=== PATIENT | female | born 1965 | race African-American/Black ===

== ENCOUNTER 2016-12-11 11:51 | Emergency (ER) | payer OTHER ==
[~2016-12-11] VITALS: Ht 152.4 cm; Wt 109.0 kg
[~2016-12-11 11:51] MED LIST: AMIT25TA9 PO; ATOR80TA76 PO; CARV25TA47 PO; CHOL20004 PO; DIPH25CA83 PO; DOCU-138 PO; ERGO2000 PO; FLEXERIL PO; FLONASE NAS; FURO40TA5 PO; GLUCOPHAGE; HUMALOG SUBCUT; HYDR-519 PO; INSU3INS6 SUBCUT; ISOS30TA6 PO; LEVEMIR; LORA10TA7 PO; METO-293 PO; NEXIUM; NIFE60TA64 PO; ONDA4TAB51 PO; PANT40TA4 PO; PLAVIX PO; PREG75CA PO; SERT-112 PO; TRIA15OI8 TP
[2016-12-11 16:09] LABS: BASOPHILS % 0.6 % (0.0-2.0); EOSINOPHILS % 3.7 % (0.0-5.0); HEMATOCRIT. 32.2 % (36.0-48.0); HEMOGLOBIN. 10.1 g/dL (12.0-16.0); LYMPHOCYTES % 28.9 % (20.0-50.0); MEAN CORPUSCULAR HEMOGLOBIN 27.3 pg (28.0-32.0); MEAN CORPUSCULAR HGB CONC 31.3 g/dL (31.0-37.0); MEAN CORPUSCULAR VOLUME 87.1 fL (81.0-99.0); MEAN PLATELET VOLUME 8.7 fl (7.4-10.4); MONOCYTES % 6.4 % (2.0-8.0); NEUTROPHILS % 60.4 % (40.0-76.0); PLATELET 219 x1000/uL (130-400); RED BLOOD CELL COUNT 3.69 mill/uL (4.2-5.4); RED CELL DISTRIBUTION WIDTH 17.9 % (11.6-14.6); WHITE BLOOD COUNT 7.3 x1000/uL (4.5-11.0)
[2016-12-11 16:11] LABS: INR 1.1; PROTHROMBIN TIME 11.6 sec
[2016-12-11 16:12] LABS: CALCIUM 8.9 mg/dL (8.5-10.1)
[2016-12-11 17:43] VITALS: BP 190/89
== END 2016-12-11 18:25 | disposition home or self-care (01) ==
LOC: ER 14:24
DX: N18.9 Chronic kidney disease, unspecified (principal); I12.9 Hypertensive chronic kidney disease with stage 1 through stage 4 chronic kidney disease, or unspecified chronic kidney disease; F41.9 Anxiety disorder, unspecified; J45.909 Unspecified asthma, uncomplicated; I50.9 Heart failure, unspecified; F32.9 Major depressive disorder, single episode, unspecified; E11.9 Type 2 diabetes mellitus without complications; Z99.2 Dependence on renal dialysis; Z79.4 Long term (current) use of insulin
CPT/HCPCS: 36415; 80048; 85025; 85610; 99284

== ENCOUNTER 2016-12-29 18:03 | Inpatient (IN) | payer OTHER ==
[~2016-12-29] VITALS: Ht 165.1 cm; Wt 134.7 kg
[~2016-12-29 18:03] MED LIST changes: +HUMALOG; -HUMALOG SUBCUT
[2016-12-29] MEDS ORDERED: ASPIRIN 81MG TABLET PO ONE (21:45)
[2016-12-29] MEDS ORDERED: NITROGLYCERIN OINT 1GM/INCH UDPKT TD ONE (21:45)
[2016-12-29 22:43] LABS: BASOPHILS % 0.4 % (0.0-2.0); EOSINOPHILS % 1.6 % (0.0-5.0); HEMATOCRIT. 33.8 % (36.0-48.0); HEMOGLOBIN. 10.7 g/dL (12.0-16.0); LYMPHOCYTES % 24.1 % (20.0-50.0); MEAN CORPUSCULAR HEMOGLOBIN 27.5 pg (28.0-32.0); MEAN CORPUSCULAR VOLUME 86.5 fL (81.0-99.0); MEAN PLATELET VOLUME 9.3 fl (7.4-10.4); MONOCYTES % 4.8 % (2.0-8.0); NEUTROPHILS % 69.1 % (40.0-76.0); PLATELET 196 x1000/uL (130-400); RED CELL DISTRIBUTION WIDTH 16.6 % (11.6-14.6)
[2016-12-29 22:51] LABS: PARTIAL THROMBOPLASTIN TIME 35.2 sec (24.0-34.0); PROTHROMBIN TIME 10.7 sec
[2016-12-29 22:54] LABS: CARBON DIOXIDE 18 mEq/L (21-32); CHLORIDE 114 mEq/L (98-107); ETHANOL BLOOD < 10 mg/dL
[2016-12-29 23:02] LABS: TROPONIN I < 0.02 ng/mL (0.00-0.04)
[2016-12-29] MEDS ORDERED: SODIUM POLYSTYRENE SULFONATE 15 G/60 ML BOT PO ONE (23:30)
[2016-12-29] MEDS ORDERED: INSULIN REGULAR (HUMULIN R) 300UNITS/3ML IV ONE (23:30)
[2016-12-29] MEDS ORDERED: CALCIUM CHLORIDE 1GM/10ML SYR IV ONE (23:30)
[2016-12-29] MEDS ORDERED: DEXTROSE 50% WATER 50ML SYRINGE IV ONE (23:30)
[2016-12-29] MEDS ORDERED: SODIUM BICARBONATE 8.4% 1 MEQ/ML 50ML SYR IV ONE (23:30)
[2016-12-30] MEDS ORDERED: HYDROCODONE/ACETAMINOPHEN 10/325MG TABLET PO ONE (01:15)
[2016-12-30 04:05] VITALS: BP 163/80
[2016-12-30 08:00] VITALS: BP 137/69
[2016-12-30] MEDS ORDERED: ENOXAPARIN 30MG/0.3ML SYR SUBCUT SCH (09:00)
[2016-12-30] MEDS ORDERED: SODIUM POLYSTYRENE SULFONATE 15 G/60 ML BOT PO PRN (09:00)
[2016-12-30] MEDS: HYDROCODONE/ACETAMINOPHEN 5/325MG TABLET PO PRN (09:35)
[2016-12-30] MEDS ORDERED: DIPHENHYDRAMINE 50MG/ML VIAL IV PRN (10:30)
[2016-12-30] MEDS ORDERED: NA PHOS,M-B/NA PHOS,DI-BA ENEMA 118ML PR PRN (10:30)
[2016-12-30] MEDS ORDERED: IPRATROPIUM/ALBUTEROL 0.5-3(2.5)MG/3ML NEB INH PRN (10:30)
[2016-12-30] MEDS ORDERED: MAGNESIUM 2 G PREMIX 50 ML IV NR (10:30)
[2016-12-30] MEDS ORDERED: ENOXAPARIN 40MG/0.4ML SYR SUBCUT SCH (10:30)
[2016-12-30] MEDS: SODIUM CHLORIDE 0.45% 1,000 ML IV SCH (11:58)
[2016-12-30 12:00] VITALS: BP 160/72
[2016-12-30] MEDS: METRONIDAZOLE 500 MG PREMIX 100 ML IV SCH (16:24)
[2016-12-30 16:29] LABS: CARBON DIOXIDE 20 mEq/L (21-32); CHLORIDE 114 mEq/L (98-107); CREATINE KINASE 47 IU/L (26-192); CREATINE KINASE MB FRACTION 1.4 ng/mL (0.5-3.6); TROPONIN I < 0.02 ng/mL (0.00-0.04)
[2016-12-30 16:57] VITALS: BP 152/78
[2016-12-30] MEDS ORDERED: SODIUM POLYSTYRENE SULFONATE 15 G/60 ML BOT PO NR (18:30)
[2016-12-30 20:00] VITALS: BP 194/96
[2016-12-30] MEDS: CLONIDINE 0.1MG TABLET PO PRN (21:19)
[2016-12-30] MEDS: HYDROCODONE/ACETAMINOPHEN 10/325MG TABLET PO PRN (21:20)
[2016-12-31] VITALS: BP 164/88
[2016-12-31] MEDS: METRONIDAZOLE 500 MG PREMIX 100 ML IV SCH ×3 (00:32→16:48)
[2016-12-31] MEDS: ACETAMINOPHEN 325MG TABLET PO PRN (00:47)
[2016-12-31 00:56] LABS: CREATINE KINASE 58 IU/L (26-192)
[2016-12-31 01:01] LABS: CREATINE KINASE MB FRACTION 1.3 ng/mL (0.5-3.6); TROPONIN I < 0.02 ng/mL (0.00-0.04)
[2016-12-31 04:00] VITALS: BP 151/107
[2016-12-31] MEDS: CLONIDINE 0.1MG TABLET PO PRN ×2 (05:16→12:58)
[2016-12-31] MEDS: SODIUM CHLORIDE 0.45% 1,000 ML IV SCH ×2 (05:16→13:01)
[2016-12-31] MEDS: HYDROCODONE/ACETAMINOPHEN 10/325MG TABLET PO PRN ×3 (05:18→19:55)
[2016-12-31 05:39] LABS: BASOPHILS % 0.5 % (0.0-2.0); EOSINOPHILS % 2.3 % (0.0-5.0); HEMATOCRIT. 28.4 % (36.0-48.0); HEMOGLOBIN. 9.3 g/dL (12.0-16.0); LYMPHOCYTES % 29.2 % (20.0-50.0); MEAN CORPUSCULAR HEMOGLOBIN 27.8 pg (28.0-32.0); MEAN PLATELET VOLUME 9.6 fl (7.4-10.4); MONOCYTES % 6.2 % (2.0-8.0); NEUTROPHILS % 61.8 % (40.0-76.0); PLATELET 168 x1000/uL (130-400); RED BLOOD CELL COUNT 3.35 mill/uL (4.2-5.4); RED CELL DISTRIBUTION WIDTH 16.7 % (11.6-14.6)
[2016-12-31 06:34] LABS: CARBON DIOXIDE 17 mEq/L (21-32); CHLORIDE 112 mEq/L (98-107); CREATINE KINASE 51 IU/L (26-192); CREATINE KINASE MB FRACTION 1.5 ng/mL (0.5-3.6); LDL CHOLESTEROL 58 mg/dL (5-100); TROPONIN I 0.02 ng/mL (0.00-0.04)
[2016-12-31 06:40] LABS: HDL CHOLESTEROL 38 mg/dL (40-59); T4 FREE 0.72 ng/dL (0.76-1.46)
[2016-12-31 08:00] VITALS: BP 167/96
[2016-12-31] MEDS: ASPIRIN 81MG EC TABLET PO SCH (08:59)
[2016-12-31] MEDS: ENOXAPARIN 40MG/0.4ML SYR SUBCUT SCH (08:59)
[2016-12-31] MEDS: FUROSEMIDE 40MG/4ML VIAL IVP SCH (10:56)
[2016-12-31 12:00] VITALS: BP 190/101
[2016-12-31 16:00] VITALS: BP 165/89
[2016-12-31] MEDS: MAGNESIUM/ALUMINUM HYDROXIDE/SIMETHICONE 30ML UDC PO PRN (17:12)
[2016-12-31 20:00] VITALS: BP 179/73
[2016-12-31] MEDS ORDERED: BENAZEPRIL 20MG TABLET PO NR (23:55)
[2017-01-01] VITALS (7 sets, daily range): BP systolic 112–192; BP diastolic 49–98
[2017-01-01] MEDS: ACETAMINOPHEN 325MG TABLET PO PRN (00:08)
[2017-01-01] MEDS: METRONIDAZOLE 500 MG PREMIX 100 ML IV SCH ×2 (00:08→09:00)
[2017-01-01] MEDS: ONDANSETRON HCL 4MG/2ML VIAL IV PRN ×3 (00:19→20:42)
[2017-01-01] MEDS: SODIUM CHLORIDE 0.45% 1,000 ML IV SCH ×2 (01:38→15:49)
[2017-01-01 06:07] LABS: PHOSPHORUS 4.9 mg/dL (2.5-4.9)
[2017-01-01] MEDS: HYDROCODONE/ACETAMINOPHEN 10/325MG TABLET PO PRN ×3 (08:59→20:38)
[2017-01-01] MEDS: ASPIRIN 81MG EC TABLET PO SCH (09:51)
[2017-01-01] MEDS: CITRIC ACID/SODIUM CITRATE SOLN 15ML UDC PO SCH (09:51)
[2017-01-01] MEDS: FUROSEMIDE 40MG/4ML VIAL IVP SCH (09:51)
[2017-01-01] MEDS: BENAZEPRIL 20MG TABLET PO SCH ×2 (09:52→20:38)
[2017-01-01] MEDS: ENOXAPARIN 40MG/0.4ML SYR SUBCUT SCH (09:53)
[2017-01-01] MEDS: CLONIDINE 0.1MG TABLET PO PRN ×2 (15:50→21:55)
[2017-01-01] MEDS: METRONIDAZOLE 500MG TABLET PO SCH ×2 (16:13→21:55)
[2017-01-01] MEDS: MAGNESIUM/ALUMINUM HYDROXIDE/SIMETHICONE 30ML UDC PO PRN (20:37)
[2017-01-02] VITALS (9 sets, daily range): BP systolic 145–213; BP diastolic 72–123
[2017-01-02] MEDS: HYDROCODONE/ACETAMINOPHEN 5/325MG TABLET PO PRN (01:21)
[2017-01-02] MEDS: METOPROLOL TARTRATE 25MG TABLET PO SCH ×2 (01:41→08:36)
[2017-01-02] MEDS: SODIUM CHLORIDE 0.45% 1,000 ML IV SCH (04:01)
[2017-01-02] MEDS: CLONIDINE 0.1MG TABLET PO PRN (04:01)
[2017-01-02] MEDS ORDERED: CLONIDINE 0.3MG TABLET PO PRN (06:09)
[2017-01-02] MEDS: METRONIDAZOLE 500MG TABLET PO SCH ×2 (06:15→13:56)
[2017-01-02 06:26] LABS: BASOPHILS % 0.4 % (0.0-2.0); EOSINOPHILS % 0.9 % (0.0-5.0); HEMATOCRIT. 28.1 % (36.0-48.0); HEMOGLOBIN. 9.3 g/dL (12.0-16.0); LYMPHOCYTES % 20.9 % (20.0-50.0); MEAN CORPUSCULAR HEMOGLOBIN 27.7 pg (28.0-32.0); MEAN CORPUSCULAR VOLUME 83.7 fL (81.0-99.0); MEAN PLATELET VOLUME 9.3 fl (7.4-10.4); MONOCYTES % 5.4 % (2.0-8.0); NEUTROPHILS % 72.4 % (40.0-76.0); PLATELET 189 x1000/uL (130-400); RED BLOOD CELL COUNT 3.36 mill/uL (4.2-5.4)
[2017-01-02] MEDS: FUROSEMIDE 40MG/4ML VIAL IVP SCH (08:35)
[2017-01-02] MEDS: ENOXAPARIN 40MG/0.4ML SYR SUBCUT SCH (08:35)
[2017-01-02] MEDS: CITRIC ACID/SODIUM CITRATE SOLN 15ML UDC PO SCH (08:35)
[2017-01-02] MEDS: ASPIRIN 81MG EC TABLET PO SCH (08:36)
[2017-01-02] MEDS: BENAZEPRIL 20MG TABLET PO SCH (08:49)
[2017-01-02] MEDS ORDERED: AMLODIPINE 5MG TABLET PO SCH (09:00)
[2017-01-02] MEDS ORDERED: METOPROLOL TARTRATE 25MG TABLET PO SCH (09:00)
[2017-01-02] MEDS: ONDANSETRON HCL 4MG/2ML VIAL IV PRN (10:10)
[2017-01-02] MEDS: HYDROCODONE/ACETAMINOPHEN 10/325MG TABLET PO PRN (10:12)
== END 2017-01-02 14:20 | disposition home or self-care (01) | DRG 254 ==
LOC: ER 18:04 → 7WST 12-30 00:42
PROVIDERS: ADMIT Internal Medicine; ATTEND Internal Medicine
PROC: 05PYX3Z Removal of Infusion Device from Upper Vein, External Approach (ICD-10-PCS; principal; 2016-12-31)
DX: K59.1 Functional diarrhea (principal); I13.2 Hypertensive heart and chronic kidney disease with heart failure and with stage 5 chronic kidney disease, or end stage renal disease; A04.7 Enterocolitis due to Clostridium difficile; N18.6 End stage renal disease; E87.2 Acidosis; E46 Unspecified protein-calorie malnutrition; E11.22 Type 2 diabetes mellitus with diabetic chronic kidney disease; I50.9 Heart failure, unspecified; J45.909 Unspecified asthma, uncomplicated; I25.10 Atherosclerotic heart disease of native coronary artery without angina pectoris; E87.5 Hyperkalemia; E78.5 Hyperlipidemia, unspecified; D64.9 Anemia, unspecified; F41.9 Anxiety disorder, unspecified; K21.9 Gastro-esophageal reflux disease without esophagitis; F32.9 Major depressive disorder, single episode, unspecified; E66.01 Morbid (severe) obesity due to excess calories; E87.70 Fluid overload, unspecified; K59.00 Constipation, unspecified; Z82.49 Family history of ischemic heart disease and other diseases of the circulatory system; Z90.49 Acquired absence of other specified parts of digestive tract; Z99.2 Dependence on renal dialysis; Z87.01 Personal history of pneumonia (recurrent); Z68.42 Body mass index [BMI] 45.0-49.9, adult
CPT/HCPCS: 36415; 36589; 71010; 76770; 80048; 80053; 80061; 82270; 82550; 82553; 82962; 83605; 83690; 83735; 83880; 84100; 84439; 84443; 84484; 85025; 85610; 85730; 87015; 87045; 87070; 87427; 87449; 87493; 89055; 93005; 96374; 96375; 99291; C1893; G0482; J1650; J1815; J1940; J2405; J3475; J3490

== ENCOUNTER 2017-04-12 09:49 | Inpatient (IN) | payer OTHER ==
[~2017-04-12] VITALS: Ht 160 cm; Wt 123.4 kg
[~2017-04-12 09:49] MED LIST changes: +ATOR-2 PO; -ATOR80TA76 PO
[2017-04-12] MEDS ORDERED: ONDANSETRON 4MG ODT PO STA (10:24)
[2017-04-12] MEDS ORDERED: ONDANSETRON HCL 4MG/2ML VIAL IV STA (10:24)
[2017-04-12] MEDS ORDERED: ACETAMINOPHEN 325MG TABLET PO STA (10:24)
[2017-04-12] MEDS ORDERED: PIPERACILLIN/TAZ 3.375G PREMIX 50 ML IV ONE (10:30)
[2017-04-12] MEDS ORDERED: VANCOMYCIN 1 G PREMIX 200 ML IV ONE (10:30)
[2017-04-12] MEDS ORDERED: SODIUM CHLORIDE 0.9% 1000ML BAG (SEPSIS BOLUS) IV ONE (10:30)
[2017-04-12] MEDS ORDERED: MORPHINE SULFATE 4 MG/ML CPJ (NOT FOR IM USE) IV ONE (10:45)
[2017-04-12 11:06] LABS: BASOPHILS % 0.5 % (0.0-2.0); HEMOGLOBIN. 8.7 g/dL (12.0-16.0); LYMPHOCYTES % 8.6 % (20.0-50.0); MEAN CORPUSCULAR HEMOGLOBIN 26.2 pg (28.0-32.0); MEAN CORPUSCULAR VOLUME 84.6 fL (81.0-99.0); MEAN PLATELET VOLUME 9.5 fl (7.4-10.4); NEUTROPHILS % 82.9 % (40.0-76.0); PLATELET 201 x1000/uL (130-400); RED CELL DISTRIBUTION WIDTH 14.2 % (11.6-14.6)
[2017-04-12 11:17] LABS: INR 1.1; PROTHROMBIN TIME 11.2 sec (9.4-11.6)
[2017-04-12 11:24] LABS: CARBON DIOXIDE 16 mEq/L (21-32); CHLORIDE 110 mEq/L (98-107); TROPONIN I 0.06 ng/mL (0.00-0.04)
[2017-04-12] MEDS ORDERED: FUROSEMIDE 100MG/10ML VIAL IV STA (11:58)
[2017-04-12] MEDS ORDERED: SODIUM BICARBONATE 8.4% 1 MEQ/ML 50ML SYR IV ONE (12:00)
[2017-04-12] MEDS ORDERED: DEXTROSE 50% WATER 50ML SYRINGE IV ONE (12:00)
[2017-04-12] MEDS ORDERED: ALBUTEROL (0.083%) 2.5MG/3ML NEB HHN ONE (12:00)
[2017-04-12] MEDS ORDERED: INSULIN REGULAR (HUMULIN R) 300UNITS/3ML IV ONE (12:00)
[2017-04-12] MEDS ORDERED: SODIUM POLYSTYRENE SULFONATE 15 G/60 ML BOT PO ONE (12:00)
[2017-04-12 14:19] LABS: CLARITY URINE TURBID (CLEAR); COLOR URINE ORANGE (YELLOW); GLUCOSE URINE TRACE (NEGATIVE); KETONES URINE NEGATIVE (NEGATIVE); LEUKOCYTE ESTERASE URINE 3+ (NEGATIVE); NITRITE URINE NEGATIVE (NEGATIVE); OCCULT BLOOD URINE 3+ (NEGATIVE); PH URINE 5.5 (4.5-8.0); PROTEIN URINE 4+ (NEGATIVE); SPECIFIC GRAVITY URINE 1.018 (1.005-1.030); UROBILINOGEN URINE 0.2 E.U./dL (0.2-1.0)
[2017-04-12] MEDS ORDERED: IPRATROPIUM/ALBUTEROL 0.5-3(2.5)MG/3ML NEB INH PRN (14:30)
[2017-04-12 16:00] VITALS: BP 131/57
[2017-04-12 16:30] VITALS: BP 131/57
[2017-04-12] MEDS ORDERED: SODIUM CHLORIDE 0.9% 1,000 ML IV SCH (17:00)
[2017-04-12] MEDS ORDERED: PIPERACILLIN/TAZ 2.25G PREMIX 50 ML IV SCH ×3 (18:00→23:00)
[2017-04-12] MEDS: HYDROCODONE/ACETAMINOPHEN 5/325MG TABLET PO PRN ×2 (18:08→22:39)
[2017-04-12 20:00] VITALS: BP 128/65
[2017-04-12] MEDS ORDERED: DEXTROSE 50% WATER 50ML SYRINGE IV PRN (22:00)
[2017-04-12] MEDS ORDERED: CALCIUM CHLORIDE 1,000 MG in DEXT 5% WATER 90 ML IV ONE (23:30)
[2017-04-13] VITALS (13 sets, daily range): BP systolic 117–196; BP diastolic 35–96
[2017-04-13] MEDS: LORAZEPAM 2MG/ML CPJ IV PRN ×3 (00:23→21:55)
[2017-04-13] MEDS: ACETAMINOPHEN 325MG TABLET PO PRN ×2 (00:24→15:14)
[2017-04-13] MEDS: FUROSEMIDE 40MG/4ML VIAL IVP SCH ×2 (00:24→09:13)
[2017-04-13] MEDS: SODIUM CHLORIDE 0.9% 1,000 ML IV SCH (00:25)
[2017-04-13] MEDS ORDERED: LEVOFLOXACIN 250MG PREMIX 50 ML IV SCH ×2 (01:00→23:45)
[2017-04-13] MEDS: BLOOD SUGAR DIAGNOSTIC STRIP TEST SCH ×4 (06:15→21:53)
[2017-04-13 07:10] LABS: BASOPHILS % 0.5 % (0.0-2.0); EOSINOPHILS % 2.4 % (0.0-5.0); HEMATOCRIT. 25.4 % (36.0-48.0); HEMOGLOBIN. 7.9 g/dL (12.0-16.0); LYMPHOCYTES % 15.5 % (20.0-50.0); MEAN CORPUSCULAR HEMOGLOBIN 26.5 pg (28.0-32.0); MEAN CORPUSCULAR VOLUME 84.6 fL (81.0-99.0); MEAN PLATELET VOLUME 9.8 fl (7.4-10.4); MONOCYTES % 10.7 % (2.0-8.0); NEUTROPHILS % 70.9 % (40.0-76.0); PLATELET 200 x1000/uL (130-400); RED CELL DISTRIBUTION WIDTH 14.2 % (11.6-14.6)
[2017-04-13 07:17] LABS: *AMPHETAMINES SCREEN URINE NEGATIVE (NEGATIVE); *BARBITURATES SCREEN URINE NEGATIVE (NEGATIVE); *BENZODIAZEPINES SCREEN URINE NEGATIVE (NEGATIVE); *COCAINE SCREEN URINE NEGATIVE (NEGATIVE); CANNABINOID URINE SCREEN NEGATIVE (NEGATIVE); METHADONE URINE SCREEN NEGATIVE (NEGATIVE); OPIATES URINE SCREEN PRESUMTIVE POSITIVE (NEGATIVE); PHENCYCLIDINE URINE SCREEN NEGATIVE (NEGATIVE)
[2017-04-13] MEDS: INSULIN LISPRO 100 UNITS/ML SUBCUT SCH ×4 (08:10→21:56)
[2017-04-13 08:59] LABS: CARBON DIOXIDE 20 mEq/L (21-32); CHLORIDE 110 mEq/L (98-107); HDL CHOLESTEROL 41 mg/dL (40-59); LDL CHOLESTEROL 69 mg/dL (5-100); PHOSPHORUS 6.7 mg/dL (2.5-4.9); TOTAL IRON BINDING CAPACITY 130 ug/dL (250-450); TROPONIN I 0.04 ng/mL (0.00-0.04)
[2017-04-13] MEDS ORDERED: LIDOCAINE HCL 1% 20ML VIAL (Pyxis) INJ ONE (09:25)
[2017-04-13] MEDS ORDERED: SODIUM BICARBONATE 4% (2.4MEQ) 5ML VIAL IV ONE (09:25)
[2017-04-13] MEDS ORDERED: HEPARIN 1000 UNITS/ML 10ML ONE (09:25)
[2017-04-13] MEDS ORDERED: FENTANYL CITRATE/PF 50MCG/ML 2ML VIAL IV ONE (10:00)
[2017-04-13] MEDS ORDERED: FENTANYL CITRATE/PF 50MCG/ML 2ML VIAL ONE (10:01)
[2017-04-13] MEDS: CLONIDINE 0.1MG TABLET PO PRN (13:11)
[2017-04-13] MEDS: HYDROCODONE/ACETAMINOPHEN 5/325MG TABLET PO PRN ×2 (13:12→21:55)
[2017-04-13] MEDS ORDERED: CEFTRIAXONE 1 G PREMIX 50 ML IV SCH (18:00)
[2017-04-14] VITALS (10 sets, daily range): BP systolic 119–183; BP diastolic 61–114
[2017-04-14] MEDS: CLONIDINE 0.1MG TABLET PO PRN ×2 (00:14→23:46)
[2017-04-14] MEDS: SODIUM CHLORIDE 0.9% 1,000 ML IV SCH (00:16)
[2017-04-14] MEDS: LEVOFLOXACIN 500MG PREMIX 100 ML IV SCH ×2 (01:34→16:05)
[2017-04-14] MEDS: BLOOD SUGAR DIAGNOSTIC STRIP TEST SCH ×4 (05:53→22:51)
[2017-04-14 07:01] LABS: CARBON DIOXIDE 20 mEq/L (21-32); CHLORIDE 106 mEq/L (98-107)
[2017-04-14 07:21] LABS: BASOPHILS % 0.6 % (0.0-2.0); EOSINOPHILS % 2.4 % (0.0-5.0); HEMATOCRIT. 27.1 % (36.0-48.0); HEMOGLOBIN. 8.4 g/dL (12.0-16.0); LYMPHOCYTES % 15.7 % (20.0-50.0); MEAN CORPUSCULAR HEMOGLOBIN 26.1 pg (28.0-32.0); MEAN PLATELET VOLUME 10.1 fl (7.4-10.4); MONOCYTES % 11.2 % (2.0-8.0); NEUTROPHILS % 70.1 % (40.0-76.0); PLATELET 206 x1000/uL (130-400); RED BLOOD CELL COUNT 3.23 mill/uL (4.2-5.4); RED CELL DISTRIBUTION WIDTH 14.2 % (11.6-14.6)
[2017-04-14] MEDS: CALCIUM ACETATE 667MG CAPSULE PO SCH ×3 (08:10→18:10)
[2017-04-14] MEDS: ONDANSETRON HCL 4MG/2ML VIAL IV PRN ×2 (08:33→23:46)
[2017-04-14] MEDS: INSULIN LISPRO 100 UNITS/ML SUBCUT SCH ×4 (08:34→22:39)
[2017-04-14] MEDS: FUROSEMIDE 40MG/4ML VIAL IVP SCH (11:16)
[2017-04-14] MEDS: HYDROCODONE/ACETAMINOPHEN 5/325MG TABLET PO PRN (11:36)
[2017-04-14 13:17] LABS: HEPATITIS B SURFACE ANTIGEN NEGATIVE
[2017-04-14 13:45] LABS: HEPATITIS B CORE AB IGM NEGATIVE
[2017-04-14 13:47] LABS: HEPATITIS A AB IGM NEGATIVE (NEGATIVE)
[2017-04-14] MEDS: MORPHINE SULFATE 4 MG/ML CPJ (NOT FOR IM USE) IV PRN ×2 (14:02→23:46)
[2017-04-15] VITALS (8 sets, daily range): BP systolic 105–168; BP diastolic 50–80
[2017-04-15] MEDS ORDERED: MORPHINE SULFATE 4 MG/ML CPJ (NOT FOR IM USE) IV PRN (00:15)
[2017-04-15] MEDS: LORAZEPAM 2MG/ML CPJ IV PRN ×2 (00:57→23:14)
[2017-04-15] MEDS ORDERED: BISACODYL 10MG SUPP PR PRN (01:00)
[2017-04-15] MEDS: SODIUM CHLORIDE 0.9% 1,000 ML IV SCH (01:33)
[2017-04-15] MEDS: MORPHINE SULFATE 4 MG/ML CPJ (NOT FOR IM USE) IV PRN ×3 (05:37→19:45)
[2017-04-15] MEDS: BLOOD SUGAR DIAGNOSTIC STRIP TEST SCH ×4 (06:01→21:08)
[2017-04-15] MEDS: INSULIN LISPRO 100 UNITS/ML SUBCUT SCH ×4 (07:38→21:09)
[2017-04-15 07:39] LABS: BASOPHILS % 0.5 % (0.0-2.0); EOSINOPHILS % 2.9 % (0.0-5.0); HEMATOCRIT. 26.9 % (36.0-48.0); HEMOGLOBIN. 8.6 g/dL (12.0-16.0); LYMPHOCYTES % 10.9 % (20.0-50.0); MEAN CORPUSCULAR HEMOGLOBIN 27.1 pg (28.0-32.0); MEAN CORPUSCULAR VOLUME 84.6 fL (81.0-99.0); MEAN PLATELET VOLUME 9.4 fl (7.4-10.4); MONOCYTES % 5.3 % (2.0-8.0); NEUTROPHILS % 80.4 % (40.0-76.0); PLATELET 197 x1000/uL (130-400); RED BLOOD CELL COUNT 3.18 mill/uL (4.2-5.4); RED CELL DISTRIBUTION WIDTH 13.9 % (11.6-14.6)
[2017-04-15] MEDS: PANTOPRAZOLE 40MG DR TABLET PO SCH ×2 (07:56→21:08)
[2017-04-15 08:32] LABS: CARBON DIOXIDE 19 mEq/L (21-32); CHLORIDE 105 mEq/L (98-107)
[2017-04-15] MEDS: CALCIUM ACETATE 667MG CAPSULE PO SCH ×3 (09:25→18:43)
[2017-04-15] MEDS: FUROSEMIDE 40MG/4ML VIAL IVP SCH (09:25)
[2017-04-15] MEDS: ONDANSETRON HCL 4MG/2ML VIAL IV PRN ×2 (10:29→19:44)
[2017-04-15] MEDS: ACETAMINOPHEN 325MG TABLET PO PRN (12:17)
[2017-04-15] MEDS: METOPROLOL TARTRATE 25MG TABLET PO SCH (21:08)
[2017-04-15] MEDS ORDERED: EPOETIN ALFA 10000UNITS/ML VIAL SUBCUT NR (23:00)
[2017-04-15] MEDS: DOCUSATE SODIUM 100MG CAPSULE PO SCH (23:08)
[2017-04-15] MEDS: IRON SUCROSE COMPLEX 100 MG/5 ML ML IV SCH (23:58)
[2017-04-16] VITALS (8 sets, daily range): BP systolic 131–167; BP diastolic 48–76
[2017-04-16] MEDS ORDERED: LEVOFLOXACIN 250MG PREMIX 50 ML IV SCH (01:00)
[2017-04-16] MEDS: MORPHINE SULFATE 4 MG/ML CPJ (NOT FOR IM USE) IV PRN ×2 (04:51→09:21)
[2017-04-16] MEDS: BLOOD SUGAR DIAGNOSTIC STRIP TEST SCH ×4 (06:42→21:02)
[2017-04-16 07:31] LABS: BASOPHILS % 0.5 % (0.0-2.0); EOSINOPHILS % 2.4 % (0.0-5.0); HEMATOCRIT. 26.2 % (36.0-48.0); HEMOGLOBIN. 8.6 g/dL (12.0-16.0); MEAN CORPUSCULAR HEMOGLOBIN 27.6 pg (28.0-32.0); MEAN CORPUSCULAR VOLUME 84.3 fL (81.0-99.0); MEAN PLATELET VOLUME 9.6 fl (7.4-10.4); MONOCYTES % 10.5 % (2.0-8.0); NEUTROPHILS % 68.6 % (40.0-76.0); PLATELET 211 x1000/uL (130-400); RED BLOOD CELL COUNT 3.11 mill/uL (4.2-5.4); RED CELL DISTRIBUTION WIDTH 14.2 % (11.6-14.6)
[2017-04-16] MEDS: CALCIUM ACETATE 667MG CAPSULE PO SCH ×3 (08:10→18:20)
[2017-04-16] MEDS: INSULIN LISPRO 100 UNITS/ML SUBCUT SCH ×4 (08:10→21:02)
[2017-04-16] MEDS: ONDANSETRON HCL 4MG/2ML VIAL IV PRN ×2 (08:36→21:02)
[2017-04-16] MEDS: PANTOPRAZOLE 40MG DR TABLET PO SCH (10:34)
[2017-04-16] MEDS: DOCUSATE SODIUM 100MG CAPSULE PO SCH ×3 (10:34→17:00)
[2017-04-16] MEDS: FUROSEMIDE 40MG TABLET PO SCH (10:34)
[2017-04-16] MEDS: METOPROLOL TARTRATE 25MG TABLET PO SCH (10:35)
[2017-04-16] MEDS ORDERED: CEFTRIAXONE 2 G PREMIX 50 ML IV SCH (17:00)
[2017-04-16] MEDS ORDERED: POTASSIUM CHLORIDE 20MEQ TABLET SR PO NR (17:30)
[2017-04-16] MEDS: CEFTRIAXONE 2 G in DEXTROSE 5% WATER 50 ML IV SCH (18:19)
[2017-04-16] MEDS: METOPROLOL TARTRATE 50MG TABLET PO SCH (21:03)
[2017-04-16] MEDS: HYDROCODONE/ACETAMINOPHEN 5/325MG TABLET PO PRN (21:03)
[2017-04-16] MEDS: IRON SUCROSE COMPLEX 100 MG/5 ML ML IV SCH (21:03)
[2017-04-17] VITALS (8 sets, daily range): BP systolic 128–183; BP diastolic 51–87
[2017-04-17] MEDS: ONDANSETRON HCL 4MG/2ML VIAL IV PRN ×3 (04:52→20:15)
[2017-04-17] MEDS: BLOOD SUGAR DIAGNOSTIC STRIP TEST SCH ×4 (06:42→21:13)
[2017-04-17 07:14] LABS: CLARITY URINE CLEAR (CLEAR); COLOR URINE YELLOW (YELLOW); GLUCOSE URINE 1+ (NEGATIVE); KETONES URINE NEGATIVE (NEGATIVE); LEUKOCYTE ESTERASE URINE 1+ (NEGATIVE); NITRITE URINE NEGATIVE (NEGATIVE); OCCULT BLOOD URINE 2+ (NEGATIVE); PROTEIN URINE 4+ (NEGATIVE); SPECIFIC GRAVITY URINE 1.015 (1.005-1.030); UROBILINOGEN URINE 0.2 E.U./dL (0.2-1.0)
[2017-04-17] MEDS: CALCIUM ACETATE 667MG CAPSULE PO SCH ×3 (08:10→17:31)
[2017-04-17] MEDS: INSULIN LISPRO 100 UNITS/ML SUBCUT SCH ×4 (08:10→21:13)
[2017-04-17] MEDS: METOPROLOL TARTRATE 50MG TABLET PO SCH ×2 (08:45→21:14)
[2017-04-17] MEDS: DOCUSATE SODIUM 100MG CAPSULE PO SCH ×3 (08:45→17:32)
[2017-04-17] MEDS: CLONIDINE 0.1MG TABLET PO PRN (10:31)
[2017-04-17] MEDS: FAMOTIDINE 20MG TABLET PO SCH (10:31)
[2017-04-17] MEDS: FUROSEMIDE 40MG TABLET PO SCH (10:31)
[2017-04-17] MEDS: CEFTRIAXONE 2 G in DEXTROSE 5% WATER 50 ML IV SCH (17:32)
[2017-04-17] MEDS: DILTIAZEM HCL 30MG TABLET PO SCH ×2 (17:33→21:14)
[2017-04-17] MEDS: BENAZEPRIL 10MG TABLET PO SCH (18:58)
[2017-04-17] MEDS: IRON SUCROSE COMPLEX 100 MG/5 ML ML IV SCH (21:14)
[2017-04-17] MEDS: MORPHINE SULFATE 4 MG/ML CPJ (NOT FOR IM USE) IV PRN (21:23)
[2017-04-18] VITALS: BP 159/71
[2017-04-18] MEDS: MAGNESIUM/ALUMINUM HYDROXIDE/SIMETHICONE 30ML UDC PO PRN (00:06)
[2017-04-18] MEDS: ACETAMINOPHEN 325MG TABLET PO PRN (00:06)
[2017-04-18 04:00] VITALS: BP 180/69
[2017-04-18] MEDS: DILTIAZEM HCL 30MG TABLET PO SCH (05:27)
[2017-04-18] MEDS: ONDANSETRON HCL 4MG/2ML VIAL IV PRN ×3 (05:27→18:01)
[2017-04-18] MEDS: MORPHINE SULFATE 4 MG/ML CPJ (NOT FOR IM USE) IV PRN ×3 (05:33→22:22)
[2017-04-18] MEDS: BLOOD SUGAR DIAGNOSTIC STRIP TEST SCH ×4 (06:00→21:00)
[2017-04-18 06:22] LABS: CARBON DIOXIDE 24 mEq/L (21-32); CHLORIDE 101 mEq/L (98-107)
[2017-04-18 08:00] VITALS: BP 186/87
[2017-04-18] MEDS: INSULIN LISPRO 100 UNITS/ML SUBCUT SCH ×4 (08:10→22:07)
[2017-04-18 08:28] LABS: HEMOGLOBIN. 8.7 g/dL (12.0-16.0); MEAN CORPUSCULAR HEMOGLOBIN 27.3 pg (28.0-32.0); MEAN CORPUSCULAR VOLUME 84.8 fL (81.0-99.0); MEAN PLATELET VOLUME 9.3 fl (7.4-10.4); PLATELET 234 x1000/uL (130-400); RED BLOOD CELL COUNT 3.19 mill/uL (4.2-5.4); RED CELL DISTRIBUTION WIDTH 13.9 % (11.6-14.6)
[2017-04-18] MEDS ORDERED: ONDANSETRON HCL 4MG/2ML VIAL IV PRN (09:00)
[2017-04-18] MEDS: DOCUSATE SODIUM 100MG CAPSULE PO SCH ×3 (09:38→18:01)
[2017-04-18] MEDS: CALCIUM ACETATE 667MG CAPSULE PO SCH ×3 (09:38→18:01)
[2017-04-18] MEDS: FAMOTIDINE 20MG TABLET PO SCH (09:38)
[2017-04-18 10:38] LABS: PLATELET ESTIMATE NORMAL
[2017-04-18] MEDS: BENAZEPRIL 10MG TABLET PO SCH (10:38)
[2017-04-18] MEDS: METOPROLOL TARTRATE 50MG TABLET PO SCH ×2 (10:39→20:31)
[2017-04-18] MEDS: FUROSEMIDE 40MG TABLET PO SCH (10:39)
[2017-04-18 12:00] VITALS: BP 164/83
[2017-04-18 16:00] VITALS: BP 163/64
[2017-04-18] MEDS: DILTIAZEM HCL 60MG TABLET PO SCH (18:01)
[2017-04-18] MEDS: CEFTRIAXONE 2 G in DEXTROSE 5% WATER 50 ML IV SCH (18:03)
[2017-04-18 20:00] VITALS: BP 192/82
[2017-04-18] MEDS: CLONIDINE 0.1MG TABLET PO PRN (20:32)
[2017-04-18] MEDS ORDERED: EPOETIN ALFA 10000UNITS/ML VIAL SUBCUT SCH (21:00)
[2017-04-18] MEDS: LACTULOSE 20G/30ML UDC PO SCH (22:06)
[2017-04-18] MEDS: IRON SUCROSE COMPLEX 100 MG/5 ML ML IV SCH (22:06)
[2017-04-19] VITALS: BP 156/77
[2017-04-19] MEDS ORDERED: LACTULOSE 20G/30ML UDC PO NR (00:15)
[2017-04-19] MEDS: DILTIAZEM HCL 60MG TABLET PO SCH ×4 (00:41→18:07)
[2017-04-19] MEDS: METOCLOPRAMIDE HCL 10MG/2ML VIAL IV SCH ×5 (00:42→23:13)
[2017-04-19] MEDS: ONDANSETRON HCL 4MG/2ML VIAL IV PRN ×3 (00:42→21:02)
[2017-04-19 04:00] VITALS: BP 166/69
[2017-04-19] MEDS: MORPHINE SULFATE 4 MG/ML CPJ (NOT FOR IM USE) IV PRN ×3 (05:11→21:06)
[2017-04-19 05:30] LABS: HEMOGLOBIN. 9.5 g/dL (12.0-16.0); MEAN CORPUSCULAR HEMOGLOBIN 26.8 pg (28.0-32.0); MEAN CORPUSCULAR VOLUME 85.2 fL (81.0-99.0); MEAN PLATELET VOLUME 8.9 fl (7.4-10.4); PLATELET 295 x1000/uL (130-400); RED BLOOD CELL COUNT 3.53 mill/uL (4.2-5.4)
[2017-04-19] MEDS: BLOOD SUGAR DIAGNOSTIC STRIP TEST SCH ×4 (05:31→21:37)
[2017-04-19 08:00] VITALS: BP 117/60
[2017-04-19] MEDS: METOPROLOL TARTRATE 50MG TABLET PO SCH ×2 (08:21→21:06)
[2017-04-19] MEDS: DOCUSATE SODIUM 100MG CAPSULE PO SCH ×3 (08:21→17:00)
[2017-04-19] MEDS: LACTULOSE 20G/30ML UDC PO SCH ×2 (08:21→17:00)
[2017-04-19] MEDS: BENAZEPRIL 20MG TABLET PO SCH ×2 (08:22→21:06)
[2017-04-19] MEDS: CALCIUM ACETATE 667MG CAPSULE PO SCH ×3 (09:00→18:07)
[2017-04-19] MEDS: FAMOTIDINE 20MG TABLET PO SCH (09:00)
[2017-04-19] MEDS: FUROSEMIDE 40MG TABLET PO SCH (09:00)
[2017-04-19] MEDS: INSULIN LISPRO 100 UNITS/ML SUBCUT SCH ×4 (09:07→21:08)
[2017-04-19 12:00] VITALS: BP 147/78
[2017-04-19] MEDS: IRON SUCROSE COMPLEX 100 MG/5 ML ML IV SCH (12:55)
[2017-04-19] MEDS ORDERED: HEPARIN SODIUM 1,000 UNIT/1ML VIAL IV NR (15:30)
[2017-04-19 16:00] VITALS: BP 207/76
[2017-04-19] MEDS: MAGNESIUM/ALUMINUM HYDROXIDE/SIMETHICONE 30ML UDC PO PRN (16:02)
[2017-04-19] MEDS: ACETAMINOPHEN 325MG TABLET PO PRN ×2 (16:02→22:49)
[2017-04-19] MEDS: CEFTRIAXONE 2 G in DEXTROSE 5% WATER 50 ML IV SCH (18:07)
[2017-04-19 20:00] VITALS: BP 168/68
[2017-04-19] MEDS ORDERED: EPOETIN ALFA 10000UNITS/ML VIAL SUBCUT NR (21:00)
[2017-04-19 23:07] LABS: ATYPICAL LYMPHOCYTES 1; PLATELET ESTIMATE NORMAL
[2017-04-20] VITALS: BP 148/57
[2017-04-20] MEDS: DILTIAZEM HCL 60MG TABLET PO SCH ×3 (00:46→13:08)
[2017-04-20] MEDS ORDERED: MORPHINE SULFATE 4 MG/ML CPJ (NOT FOR IM USE) IV PRN (03:45)
[2017-04-20] MEDS: CLONIDINE 0.1MG TABLET PO PRN (03:53)
[2017-04-20] MEDS: METOCLOPRAMIDE HCL 10MG/2ML VIAL IV SCH ×2 (06:40→13:08)
[2017-04-20 07:04] VITALS: BP 163/53
[2017-04-20] MEDS: BLOOD SUGAR DIAGNOSTIC STRIP TEST SCH ×2 (07:22→12:41)
[2017-04-20 08:23] VITALS: BP 146/59
[2017-04-20] MEDS: ONDANSETRON HCL 4MG/2ML VIAL IV PRN (08:51)
[2017-04-20] MEDS: FUROSEMIDE 40MG TABLET PO SCH (08:51)
[2017-04-20] MEDS: METOPROLOL TARTRATE 50MG TABLET PO SCH (08:51)
[2017-04-20] MEDS: FAMOTIDINE 20MG TABLET PO SCH (08:51)
[2017-04-20] MEDS: BENAZEPRIL 20MG TABLET PO SCH (08:51)
[2017-04-20] MEDS: IRON SUCROSE COMPLEX 100 MG/5 ML ML IV SCH (08:51)
[2017-04-20] MEDS: CALCIUM ACETATE 667MG CAPSULE PO SCH ×2 (08:52→13:10)
[2017-04-20] MEDS: MORPHINE SULFATE 4 MG/ML CPJ (NOT FOR IM USE) IV PRN ×2 (08:53→13:09)
[2017-04-20] MEDS: INSULIN LISPRO 100 UNITS/ML SUBCUT SCH ×2 (08:53→13:09)
[2017-04-20] MEDS: DOCUSATE SODIUM 100MG CAPSULE PO SCH ×2 (08:54→13:08)
[2017-04-20] MEDS: LACTULOSE 20G/30ML UDC PO SCH (08:54)
[2017-04-20 09:23] LABS: HEMATOCRIT. 31.6 % (36.0-48.0); HEMOGLOBIN. 9.9 g/dL (12.0-16.0); MEAN CORPUSCULAR HEMOGLOBIN 26.8 pg (28.0-32.0); MEAN CORPUSCULAR VOLUME 85.3 fL (81.0-99.0); PLATELET 268 x1000/uL (130-400); RED CELL DISTRIBUTION WIDTH 13.7 % (11.6-14.6)
[2017-04-20 13:09] VITALS: BP 157/81
[2017-04-20 14:32] VITALS: BP 157/81
[2017-04-20 15:00] LABS: PLATELET ESTIMATE NORMAL
== END 2017-04-20 17:05 | disposition home or self-care (01) | DRG 720 ==
LOC: ER 10:04 → 6EST 12:18 → EDBEDREQTM 12:24 → EDBEDREQ 12:24 → ENRESERV 14:21 → CANRESERV 14:21 → ENRESERV 15:48 → EDBEDREQSVC 16:23 → 7WST 23:50
PROVIDERS: ADMIT Internal Medicine; ATTEND Internal Medicine
PROC: B244ZZZ Ultrasonography of Right Heart (ICD-10-PCS; principal; 2017-04-13)
PROC: 02H633Z Insertion of Infusion Device into Right Atrium, Percutaneous Approach (ICD-10-PCS; 2017-04-13)
PROC: B2141ZZ Fluoroscopy of Right Heart using Low Osmolar Contrast (ICD-10-PCS; 2017-04-13)
PROC: 5A1D60Z (ICD-10-PCS; 2017-04-13)
PROC: B5181ZA Fluoroscopy of Superior Vena Cava using Low Osmolar Contrast, Guidance (ICD-10-PCS; 2017-04-14)
PROC: 02HV33Z Insertion of Infusion Device into Superior Vena Cava, Percutaneous Approach (ICD-10-PCS; 2017-04-14)
PROC: B548ZZA Ultrasonography of Superior Vena Cava, Guidance (ICD-10-PCS; 2017-04-14)
PROC: 30233N1 Transfusion of Nonautologous Red Blood Cells into Peripheral Vein, Percutaneous Approach (ICD-10-PCS; 2017-04-14)
DX: A41.9 Sepsis, unspecified organism (principal); I50.33 Acute on chronic diastolic (congestive) heart failure; E87.2 Acidosis; E43 Unspecified severe protein-calorie malnutrition; N17.9 Acute kidney failure, unspecified; E11.22 Type 2 diabetes mellitus with diabetic chronic kidney disease; K86.89 Other specified diseases of pancreas; Z68.41 Body mass index [BMI] 40.0-44.9, adult; I13.2 Hypertensive heart and chronic kidney disease with heart failure and with stage 5 chronic kidney disease, or end stage renal disease; N18.6 End stage renal disease; N39.0 Urinary tract infection, site not specified; D64.9 Anemia, unspecified; E66.01 Morbid (severe) obesity due to excess calories; E87.5 Hyperkalemia; I25.10 Atherosclerotic heart disease of native coronary artery without angina pectoris; J45.909 Unspecified asthma, uncomplicated; N20.0 Calculus of kidney; B96.1 Klebsiella pneumoniae [K. pneumoniae] as the cause of diseases classified elsewhere; N28.1 Cyst of kidney, acquired; K59.00 Constipation, unspecified; F41.9 Anxiety disorder, unspecified; F32.9 Major depressive disorder, single episode, unspecified; Z82.49 Family history of ischemic heart disease and other diseases of the circulatory system; Z90.49 Acquired absence of other specified parts of digestive tract; Z87.01 Personal history of pneumonia (recurrent); Z79.899 Other long term (current) drug therapy
CPT/HCPCS: 36415; 36430; 36558; 36569; 71010; 74000; 74176; 76700; 76937; 77001; 80048; 80053; 80061; 80305; 81001; 81025; 82728; 82962; 83540; 83550; 83605; 83690; 83735; 83880; 84100; 84443; 84484; 85007; 85025; 85027; 85044; 85610; 85730; 86705; 86709; 86803; 86850; 86870; 86900; 86920; 87040; 87077; 87086; 87186; 87340; 93005; 93306; 93970; 96374; 96375; 97165; 99285; A6261; C1725; C1750; C1887; C1893; J0696; J0885; J1644; J1815; J1940; J1956; J2060; J2270; J2405; J2543; J2765; J3010; J3370; J3490; J7030; J7050; J7060; J7611; P9016

== ENCOUNTER 2017-05-09 11:23 | Inpatient (IN) | payer OTHER ==
[~2017-05-09] VITALS: Ht 165.1 cm; Wt 131.6 kg
[~2017-05-09 11:23] MED LIST changes: -GLUCOPHAGE; -LEVEMIR; -NEXIUM
[2017-05-09] MEDS ORDERED: SODIUM CHLORIDE 0.9% 1,000 ML IV ONE (12:50)
[2017-05-09] MEDS ORDERED: ACETAMINOPHEN 325MG TABLET PO STA (12:50)
[2017-05-09] MEDS ORDERED: MORPHINE SULFATE 4 MG/ML CPJ (NOT FOR IM USE) IV STA (12:50)
[2017-05-09] MEDS ORDERED: ONDANSETRON HCL 4MG/2ML VIAL IV STA (12:50)
[2017-05-09] MEDS ORDERED: PIPERACILLIN/TAZ 3.375G PREMIX 50 ML IV ONE (13:00)
[2017-05-09] MEDS ORDERED: VANCOMYCIN 1 G PREMIX 200 ML IV ONE (13:00)
[2017-05-09 13:27] LABS: BASOPHILS % 0.5 % (0.0-2.0); EOSINOPHILS % 4.1 % (0.0-5.0); HEMATOCRIT. 27.8 % (36.0-48.0); HEMOGLOBIN. 8.6 g/dL (12.0-16.0); MEAN CORPUSCULAR VOLUME 87.8 fL (81.0-99.0); MEAN PLATELET VOLUME 9.3 fl (7.4-10.4); MONOCYTES % 7.2 % (2.0-8.0); NEUTROPHILS % 59.2 % (40.0-76.0); PLATELET 166 x1000/uL (130-400); RED BLOOD CELL COUNT 3.17 mill/uL (4.2-5.4); RED CELL DISTRIBUTION WIDTH 14.6 % (11.6-14.6)
[2017-05-09 13:34] LABS: INR 1.1; PROTHROMBIN TIME 10.9 sec (9.4-11.6)
[2017-05-09 13:42] LABS: CARBON DIOXIDE 22 mEq/L (21-32); CHLORIDE 106 mEq/L (98-107); TROPONIN I < 0.02 ng/mL (0.00-0.04)
[2017-05-09] MEDS ORDERED: LIDOCAINE HCL 1% 20ML VIAL (Pyxis) INJ ONE (14:41)
[2017-05-09] MEDS ORDERED: SODIUM BICARBONATE 4% (2.4MEQ) 5ML VIAL IV ONE (14:41)
[2017-05-09] MEDS ORDERED: CLONIDINE 0.1MG TABLET PO PRN (15:45)
[2017-05-09] MEDS ORDERED: MORPHINE SULFATE 4 MG/ML CPJ (NOT FOR IM USE) IV PRN (15:45)
[2017-05-09] MEDS ORDERED: DIPHENHYDRAMINE 50MG/ML VIAL IV PRN (15:45)
[2017-05-09] MEDS ORDERED: ACETAMINOPHEN 325MG TABLET PO PRN (15:45)
[2017-05-09] MEDS ORDERED: ONDANSETRON HCL 4MG/2ML VIAL IV PRN (15:45)
[2017-05-09] MEDS ORDERED: IPRATROPIUM/ALBUTEROL 0.5-3(2.5)MG/3ML NEB INH PRN (15:45)
[2017-05-09] MEDS ORDERED: HYDRALAZINE 20MG/ML VIAL IV ONE (17:00)
[2017-05-09 20:17] VITALS: BP 187/79
[2017-05-09] MEDS ORDERED: CLOP75TA33 PO (21:03)
[2017-05-09 22:00] VITALS: BP 145/85
[2017-05-09] MEDS ORDERED: VANCOMYCIN 1 G PREMIX 200 ML IV SCH (22:00)
[2017-05-09] MEDS ORDERED: SENNOSIDES 8.6MG TABLET PO PRN (23:00)
[2017-05-09] MEDS ORDERED: BISACODYL 10MG SUPP PR NR (23:00)
[2017-05-09] MEDS ORDERED: EPOETIN ALFA 10000UNITS/ML VIAL SUBCUT NR (23:00)
[2017-05-09] MEDS: HYDROCODONE/ACETAMINOPHEN 5/325MG TABLET PO PRN (23:23)
[2017-05-10] VITALS (12 sets, daily range): BP systolic 105–141; BP diastolic 43–79
[2017-05-10] MEDS ORDERED: DEXTROSE 50% WATER 50ML SYRINGE IV PRN
[2017-05-10] MEDS ORDERED: LORAZEPAM 0.5MG TABLET PO PRN
[2017-05-10] MEDS ORDERED: LEVO750T46 PO (00:44)
[2017-05-10] MEDS ORDERED: INSU100I28 SQ (00:44)
[2017-05-10] MEDS ORDERED: CALC0.253 PO (00:44)
[2017-05-10] MEDS ORDERED: IRON SUCROSE COMPLEX 100 MG/5 ML ML IV SCH (01:39)
[2017-05-10] MEDS ORDERED: HEPARIN SODIUM 1,000 UNIT/1ML VIAL IV ONE (02:15)
[2017-05-10] MEDS ORDERED: HEPARIN SODIUM 1,000 UNIT/1ML VIAL IV SCH (03:30)
[2017-05-10] MEDS: BLOOD SUGAR DIAGNOSTIC STRIP TEST SCH ×4 (06:28→21:00)
[2017-05-10] MEDS: HYDROCODONE/ACETAMINOPHEN 5/325MG TABLET PO PRN (06:29)
[2017-05-10 08:00] LABS: CARBON DIOXIDE 22 mEq/L (21-32); CHLORIDE 100 mEq/L (98-107); HDL CHOLESTEROL 35 mg/dL (40-59); LDL CHOLESTEROL 68 mg/dL (5-100); TROPONIN I 0.02 ng/mL (0.00-0.04)
[2017-05-10] MEDS: FOLIC ACID/VITAMIN B COMP W-C TABLET PO SCH (08:04)
[2017-05-10] MEDS: SEVELAMER CARBONATE 800 MG TABLET PO SCH ×3 (08:04→17:45)
[2017-05-10] MEDS: INSULIN LISPRO 100 UNITS/ML SUBCUT SCH ×4 (08:06→21:13)
[2017-05-10] MEDS: BISACODYL 10MG SUPP PR SCH ×2 (08:07→17:00)
[2017-05-10 08:24] LABS: BASOPHILS % 0.7 % (0.0-2.0); HEMATOCRIT. 25.7 % (36.0-48.0); HEMOGLOBIN. 8.2 g/dL (12.0-16.0); LYMPHOCYTES % 25.9 % (20.0-50.0); MEAN CORPUSCULAR HEMOGLOBIN 27.8 pg (28.0-32.0); MEAN CORPUSCULAR VOLUME 87.4 fL (81.0-99.0); MEAN PLATELET VOLUME 9.8 fl (7.4-10.4); MONOCYTES % 9.8 % (2.0-8.0); NEUTROPHILS % 58.6 % (40.0-76.0); PLATELET 143 x1000/uL (130-400); RED BLOOD CELL COUNT 2.94 mill/uL (4.2-5.4); RED CELL DISTRIBUTION WIDTH 14.2 % (11.6-14.6)
[2017-05-10] MEDS ORDERED: MEDICATION NOT ON FORMULARY EA (Insulin Glargine,Hum.rec.anlog (Lantus Solostar) 30 UNIT SUBCUT SCH (09:00)
[2017-05-10] MEDS ORDERED: NIFEDIPINE XL 60MG TAB PO SCH (09:30)
[2017-05-10] MEDS ORDERED: DIPHENHYDRAMINE 25MG CAPSULE PO PRN (09:30)
[2017-05-10] MEDS ORDERED: ISOSORBIDE DINITRATE 20MG TABLET PO SCH (10:00)
[2017-05-10] MEDS ORDERED: INSULIN GLARGINE UD 100 UNITS/ML SYR SUBCUT SCH (10:00)
[2017-05-10] MEDS: MORPHINE SULFATE 4 MG/ML CPJ (NOT FOR IM USE) IV PRN ×4 (10:32→21:34)
[2017-05-10] MEDS: PANTOPRAZOLE 40MG DR TABLET PO SCH (10:33)
[2017-05-10] MEDS: LORATADINE 10MG TABLET PO SCH (10:33)
[2017-05-10] MEDS: CLOPIDOGREL 75MG TABLET PO SCH (10:33)
[2017-05-10] MEDS: CARVEDILOL 25MG TABLET PO SCH ×2 (10:33→21:12)
[2017-05-10] MEDS: CALCITRIOL 0.25MCG CAPSULE PO SCH (10:34)
[2017-05-10] MEDS: INSULIN DETEMIR UD 100 UNITS/ML SYR SUBCUT SCH ×2 (11:31→21:15)
[2017-05-10] MEDS: ISOSORBIDE DINITRATE 30MG TABLET PO SCH ×2 (11:32→21:11)
[2017-05-10] MEDS: SERTRALINE HCL 100MG TABLET PO SCH (11:32)
[2017-05-10] MEDS: PREGABALIN 75MG CAPSULE PO SCH (12:41)
[2017-05-10] MEDS: NIFEDIPINE XL 30MG TAB PO SCH (12:42)
[2017-05-10] MEDS ORDERED: DIPHENHYDRAMINE 50MG CAPSULE PO PRN (16:52)
[2017-05-10] MEDS ORDERED: AMITRIPTYLINE 25MG TABLET PO SCH (21:00)
[2017-05-11] VITALS (10 sets, daily range): BP systolic 117–135; BP diastolic 60–79
[2017-05-11] MEDS: HYDROCODONE/ACETAMINOPHEN 5/325MG TABLET PO PRN ×2 (00:17→06:44)
[2017-05-11] MEDS: MORPHINE SULFATE 4 MG/ML CPJ (NOT FOR IM USE) IV PRN (06:24)
[2017-05-11] MEDS: PANTOPRAZOLE 40MG DR TABLET PO SCH (06:28)
[2017-05-11] MEDS: BLOOD SUGAR DIAGNOSTIC STRIP TEST SCH ×3 (06:50→17:08)
[2017-05-11 07:10] LABS: BASOPHILS % 0.7 % (0.0-2.0); EOSINOPHILS % 4.9 % (0.0-5.0); HEMATOCRIT. 25.6 % (36.0-48.0); LYMPHOCYTES % 35.1 % (20.0-50.0); MEAN CORPUSCULAR HEMOGLOBIN 27.1 pg (28.0-32.0); MEAN CORPUSCULAR VOLUME 87.2 fL (81.0-99.0); MONOCYTES % 9.4 % (2.0-8.0); NEUTROPHILS % 49.9 % (40.0-76.0); PLATELET 147 x1000/uL (130-400); RED BLOOD CELL COUNT 2.94 mill/uL (4.2-5.4); RED CELL DISTRIBUTION WIDTH 14.3 % (11.6-14.6)
[2017-05-11] MEDS: INSULIN LISPRO 100 UNITS/ML SUBCUT SCH ×3 (08:06→17:38)
[2017-05-11] MEDS: PREGABALIN 75MG CAPSULE PO SCH (08:07)
[2017-05-11] MEDS: SERTRALINE HCL 100MG TABLET PO SCH (08:07)
[2017-05-11] MEDS: FOLIC ACID/VITAMIN B COMP W-C TABLET PO SCH (08:07)
[2017-05-11] MEDS: SEVELAMER CARBONATE 800 MG TABLET PO SCH ×3 (08:07→17:09)
[2017-05-11] MEDS: LORATADINE 10MG TABLET PO SCH (08:07)
[2017-05-11] MEDS: CLOPIDOGREL 75MG TABLET PO SCH (08:07)
[2017-05-11] MEDS: CARVEDILOL 25MG TABLET PO SCH (08:08)
[2017-05-11] MEDS: CALCITRIOL 0.25MCG CAPSULE PO SCH (08:08)
[2017-05-11] MEDS: NIFEDIPINE XL 30MG TAB PO SCH (08:09)
[2017-05-11] MEDS: ISOSORBIDE DINITRATE 30MG TABLET PO SCH ×2 (08:09→17:09)
[2017-05-11] MEDS: BISACODYL 10MG SUPP PR SCH ×2 (08:12→17:09)
[2017-05-11] MEDS ORDERED: BISACODYL 10MG SUPP PR PRN (09:00)
[2017-05-11] MEDS ORDERED: HYDR-523 PO (10:11)
[2017-05-11] MEDS ORDERED: HYDROCODONE/ACETAMINOPHEN 10/325MG TABLET PO PRN (11:45)
[2017-05-11] MEDS: INSULIN DETEMIR UD 100 UNITS/ML SYR SUBCUT SCH (11:48)
[2017-05-11] MEDS ORDERED: EPOETIN ALFA 4000UNITS/ML VIAL SUBCUT SCH (21:00)
== END 2017-05-11 18:50 | disposition home or self-care (01) | DRG 206 ==
LOC: EDBEDREQ 12:58 → ER 14:41 → ENRESERV 14:50 → EDBEDREQTM 15:48 → EDBEDREQ 15:48 → CANBEDREQ 16:39 → 3WST 16:51 → EDBEDREQ 19:58
PROVIDERS: ADMIT Internal Medicine; ATTEND Internal Medicine
PROC: 02HV33Z Insertion of Infusion Device into Superior Vena Cava, Percutaneous Approach (ICD-10-PCS; principal; 2017-05-09)
PROC: B5181ZA Fluoroscopy of Superior Vena Cava using Low Osmolar Contrast, Guidance (ICD-10-PCS; 2017-05-09)
PROC: B548ZZA Ultrasonography of Superior Vena Cava, Guidance (ICD-10-PCS; 2017-05-09)
DX: T82.868A Thrombosis due to vascular prosthetic devices, implants and grafts, initial encounter (principal); E43 Unspecified severe protein-calorie malnutrition; I13.2 Hypertensive heart and chronic kidney disease with heart failure and with stage 5 chronic kidney disease, or end stage renal disease; N18.6 End stage renal disease; E87.2 Acidosis; E11.22 Type 2 diabetes mellitus with diabetic chronic kidney disease; E87.5 Hyperkalemia; I50.9 Heart failure, unspecified; D63.1 Anemia in chronic kidney disease; J45.909 Unspecified asthma, uncomplicated; E66.01 Morbid (severe) obesity due to excess calories; E88.09 Other disorders of plasma-protein metabolism, not elsewhere classified; G89.4 Chronic pain syndrome; K86.9 Disease of pancreas, unspecified; Y71.2 Prosthetic and other implants, materials and accessory cardiovascular devices associated with adverse incidents; F32.9 Major depressive disorder, single episode, unspecified; F41.9 Anxiety disorder, unspecified; Z90.49 Acquired absence of other specified parts of digestive tract; Z99.2 Dependence on renal dialysis; Z82.49 Family history of ischemic heart disease and other diseases of the circulatory system; Z68.42 Body mass index [BMI] 45.0-49.9, adult; Z79.4 Long term (current) use of insulin; Z79.899 Other long term (current) drug therapy
CPT/HCPCS: 36415; 36569; 71010; 76937; 77001; 80048; 80053; 80061; 80202; 82962; 83605; 83735; 83880; 84443; 84484; 85025; 85610; 87040; 87086; 93005; 96365; 96367; 96375; 97162; 99285; C1725; J0360; J0885; J1642; J1644; J1815; J2270; J2405; J2543; J3370; J3490; J7030; J7050

== ENCOUNTER 2017-05-16 10:48 | Inpatient (IN) | payer OTHER ==
[~2017-05-16] VITALS: Ht 165.1 cm; Wt 108.5 kg
[~2017-05-16 10:48] MED LIST changes: +CALC0.253 PO; +CLOP75TA33 PO; +HYDR-523 PO; +INSU100I28 SQ; +LEVO750T46 PO
[2017-05-16 13:06] LABS: BASOPHILS % 0.7 % (0.0-2.0); EOSINOPHILS % 3.8 % (0.0-5.0); HEMOGLOBIN. 8.8 g/dL (12.0-16.0); LYMPHOCYTES % 28.8 % (20.0-50.0); MEAN CORPUSCULAR HEMOGLOBIN 27.3 pg (28.0-32.0); MEAN CORPUSCULAR VOLUME 86.5 fL (81.0-99.0); MEAN PLATELET VOLUME 10.7 fl (7.4-10.4); MONOCYTES % 8.1 % (2.0-8.0); NEUTROPHILS % 58.6 % (40.0-76.0); PLATELET 217 x1000/uL (130-400); RED BLOOD CELL COUNT 3.24 mill/uL (4.2-5.4); RED CELL DISTRIBUTION WIDTH 15.3 % (11.6-14.6)
[2017-05-16] MEDS ORDERED: MORPHINE SULFATE 4 MG/ML CPJ (NOT FOR IM USE) IV STA (13:11)
[2017-05-16] MEDS ORDERED: ONDANSETRON HCL 4MG/2ML VIAL IV STA (13:11)
[2017-05-16 13:12] LABS: CHLORIDE 104 mEq/L (98-107)
[2017-05-16 13:16] LABS: PARTIAL THROMBOPLASTIN TIME 26.1 sec (23.4-31.0); PROTHROMBIN TIME 10.8 sec (9.4-11.6)
[2017-05-16 13:21] LABS: CARBON DIOXIDE 21 mEq/L (21-32)
[2017-05-16] MEDS ORDERED: CLONIDINE 0.1MG TABLET PO PRN (14:00)
[2017-05-16] MEDS ORDERED: INSULIN REGULAR (HUMULIN R) 300UNITS/3ML IV ONE (14:00)
[2017-05-16] MEDS ORDERED: VANCOMYCIN 1 G PREMIX 200 ML IV SCH (14:00)
[2017-05-16] MEDS ORDERED: IPRATROPIUM/ALBUTEROL 0.5-3(2.5)MG/3ML NEB INH PRN (14:00)
[2017-05-16] MEDS ORDERED: DEXTROSE 50% WATER 50ML SYRINGE IV ONE (14:00)
[2017-05-16] MEDS ORDERED: ACETAMINOPHEN 325MG TABLET PO PRN (14:00)
[2017-05-16] MEDS ORDERED: ALBUTEROL (0.083%) 2.5MG/3ML NEB HHN ONE (14:00)
[2017-05-16] MEDS ORDERED: SODIUM BICARBONATE 8.4% 1 MEQ/ML 50ML SYR IV ONE (14:00)
[2017-05-16] MEDS ORDERED: DIPHENHYDRAMINE 50MG/ML VIAL IV PRN (14:00)
[2017-05-16] MEDS ORDERED: ONDANSETRON HCL 4MG/2ML VIAL IV PRN (14:00)
[2017-05-16] MEDS ORDERED: SODIUM POLYSTYRENE SULFONATE 15 G/60 ML BOT PO ONE (14:00)
[2017-05-16] MEDS ORDERED: LIDOCAINE HCL 1% 20ML VIAL (Pyxis) INJ ONE (14:14)
[2017-05-16] MEDS ORDERED: SODIUM BICARBONATE 4% (2.4MEQ) 5ML VIAL IV ONE (14:15)
[2017-05-16] MEDS: HYDROCODONE/ACETAMINOPHEN 5/325MG TABLET PO PRN (15:30)
[2017-05-16] MEDS ORDERED: DEXTROSE 50% WATER 50ML SYRINGE IV NR (15:30)
[2017-05-16] MEDS ORDERED: VANCOMYCIN 2,000 MG in DEXT 5% WATER 500 ML IV SCH (16:00)
[2017-05-16] MEDS: BLOOD SUGAR DIAGNOSTIC STRIP TEST SCH ×2 (16:08→21:00)
[2017-05-16] MEDS ORDERED: ONDANSETRON HCL 4MG/2ML VIAL IV ONE (18:00)
[2017-05-16] MEDS: MORPHINE SULFATE 4 MG/ML CPJ (NOT FOR IM USE) IV PRN (19:08)
[2017-05-16] MEDS ORDERED: DEXTROSE 50% WATER 50ML SYRINGE IV PRN (23:40)
[2017-05-17] VITALS (7 sets, daily range): BP systolic 79–153; BP diastolic 38–76
[2017-05-17] MEDS: MORPHINE SULFATE 4 MG/ML CPJ (NOT FOR IM USE) IV PRN ×4 (00:06→21:40)
[2017-05-17] MEDS ORDERED: EPOETIN ALFA 10000UNITS/ML VIAL SUBCUT NR (01:00)
[2017-05-17] MEDS ORDERED: FERR325T6 PO (02:10)
[2017-05-17] MEDS ORDERED: CYCL5TAB PO (02:10)
[2017-05-17] MEDS ORDERED: MEDICATION NOT ON FORMULARY EA (Cyclobenzaprine Hcl 10 MG) PO PRN (02:15)
[2017-05-17] MEDS ORDERED: DIPHENHYDRAMINE 50MG CAPSULE PO PRN (02:15)
[2017-05-17] MEDS ORDERED: CYCLOBENZAPRINE 10MG TABLET PO PRN (03:30)
[2017-05-17] MEDS ORDERED: HEPARIN SODIUM 1,000 UNIT/1ML VIAL IV NR (05:00)
[2017-05-17] MEDS ORDERED: GUAI120S2 PO (06:54)
[2017-05-17] MEDS ORDERED: GUAIFENESIN-DM 200MG-20MG/10ML UDC PO PRN (07:00)
[2017-05-17] MEDS: FUROSEMIDE 40MG TABLET PO SCH ×2 (07:15→17:41)
[2017-05-17] MEDS: BLOOD SUGAR DIAGNOSTIC STRIP TEST SCH ×4 (07:45→21:26)
[2017-05-17] MEDS: INSULIN LISPRO 100 UNITS/ML SUBCUT SCH ×4 (07:47→21:40)
[2017-05-17] MEDS: ISOSORBIDE DINITRATE 30MG TABLET PO SCH ×2 (08:45→21:26)
[2017-05-17] MEDS: NIFEDIPINE XL 30MG TAB PO SCH (08:45)
[2017-05-17] MEDS: CARVEDILOL 25MG TABLET PO SCH ×2 (08:45→21:26)
[2017-05-17] MEDS ORDERED: MEDICATION NOT ON FORMULARY EA (Atorvastatin Calcium 80 MG) PO SCH (09:00)
[2017-05-17] MEDS ORDERED: BENAZEPRIL 10MG TABLET PO SCH (09:00)
[2017-05-17] MEDS ORDERED: ISOSORBIDE MONONITRATE 30MG TABLET SR 24HR PO SCH (09:00)
[2017-05-17] MEDS ORDERED: MEDICATION NOT ON FORMULARY EA (Ferrous Sulfate 325 MG) PO SCH (09:00)
[2017-05-17] MEDS: FERROUS SULFATE 325MG TABLET PO SCH ×3 (10:07→17:41)
[2017-05-17] MEDS: CALCITRIOL 0.25MCG CAPSULE PO SCH (10:07)
[2017-05-17] MEDS: PANTOPRAZOLE 40MG DR TABLET PO SCH (10:08)
[2017-05-17] MEDS: CLOPIDOGREL 75MG TABLET PO SCH (10:08)
[2017-05-17] MEDS: LORATADINE 10MG TABLET PO SCH (10:08)
[2017-05-17] MEDS: PREGABALIN 75MG CAPSULE PO SCH (10:15)
[2017-05-17 10:25] LABS: HEMOGLOBIN. 9.7 g/dL (12.0-16.0)
[2017-05-17 10:26] LABS: BASOPHILS % 0.7 % (0.0-2.0); EOSINOPHILS % 4.4 % (0.0-5.0); HEMATOCRIT. 30.2 % (36.0-48.0); LYMPHOCYTES % 19.9 % (20.0-50.0); MEAN CORPUSCULAR HEMOGLOBIN 27.6 pg (28.0-32.0); MEAN CORPUSCULAR VOLUME 86.2 fL (81.0-99.0); MEAN PLATELET VOLUME 10.2 fl (7.4-10.4); MONOCYTES % 8.6 % (2.0-8.0); NEUTROPHILS % 66.4 % (40.0-76.0); PLATELET 187 x1000/uL (130-400); RED CELL DISTRIBUTION WIDTH 14.8 % (11.6-14.6)
[2017-05-17 10:51] LABS: CARBON DIOXIDE 28 mEq/L (21-32); CHLORIDE 97 mEq/L (98-107); HDL CHOLESTEROL 40 mg/dL (40-59); LDL CHOLESTEROL 70 mg/dL (5-100)
[2017-05-17] MEDS ORDERED: VANCOMYCIN 750 MG PREMIX 150 ML IV NR (13:00)
[2017-05-17] MEDS ORDERED: LIDOCAINE HCL 1% 20ML VIAL (Pyxis) INJ ONE (13:59)
[2017-05-17] MEDS ORDERED: SODIUM BICARBONATE 4% (2.4MEQ) 5ML VIAL IV ONE (13:59)
[2017-05-17] MEDS ORDERED: MORPHINE SULFATE 2 MG/ML CPJ (NOT FOR IM USE) IV PRN (14:30)
[2017-05-17] MEDS: AMITRIPTYLINE 25MG TABLET PO SCH (17:40)
[2017-05-17] MEDS ORDERED: POTASSIUM CHLORIDE INJ 40 MEQ in DEXT 5% WATER 250 ML IV NR (18:00)
[2017-05-17] MEDS ORDERED: EPOETIN ALFA 10000UNITS/ML VIAL SUBCUT SCH (21:00)
[2017-05-17] MEDS: ATORVASTATIN CALCIUM 40MG TABLET PO SCH (21:26)
[2017-05-17] MEDS ORDERED: IRON SUCROSE COMPLEX 100 MG/5 ML ML IV SCH (23:00)
[2017-05-18] VITALS: BP 114/53
[2017-05-18 04:00] VITALS: BP 114/53
[2017-05-18] MEDS: MORPHINE SULFATE 4 MG/ML CPJ (NOT FOR IM USE) IV PRN ×2 (04:42→22:20)
[2017-05-18] MEDS: FUROSEMIDE 40MG TABLET PO SCH ×2 (06:05→17:15)
[2017-05-18] MEDS: PANTOPRAZOLE 40MG DR TABLET PO SCH (06:05)
[2017-05-18] MEDS: BLOOD SUGAR DIAGNOSTIC STRIP TEST SCH ×4 (06:22→21:58)
[2017-05-18] MEDS: INSULIN LISPRO 100 UNITS/ML SUBCUT SCH ×4 (07:50→22:13)
[2017-05-18 08:00] VITALS: BP 132/79
[2017-05-18] MEDS: BENAZEPRIL 10MG TABLET PO SCH ×2 (09:00→17:00)
[2017-05-18] MEDS: ISOSORBIDE DINITRATE 30MG TABLET PO SCH ×2 (09:00→22:08)
[2017-05-18] MEDS: PREGABALIN 75MG CAPSULE PO SCH (09:00)
[2017-05-18] MEDS: CLOPIDOGREL 75MG TABLET PO SCH (09:00)
[2017-05-18] MEDS: LORATADINE 10MG TABLET PO SCH (09:00)
[2017-05-18] MEDS: CALCITRIOL 0.25MCG CAPSULE PO SCH (09:00)
[2017-05-18] MEDS: CARVEDILOL 25MG TABLET PO SCH ×2 (09:00→22:07)
[2017-05-18] MEDS: NIFEDIPINE XL 30MG TAB PO SCH (09:00)
[2017-05-18] MEDS ORDERED: GELATIN SPONGE,ABSORBABLE SZ 100 ONE (09:37)
[2017-05-18] MEDS ORDERED: BACITRACIN ZINC 15GM TUBE TOP ONE (09:37)
[2017-05-18] MEDS ORDERED: BACITRACIN 50,000 UNITS/VIAL ONE (09:38)
[2017-05-18] MEDS ORDERED: HEPARIN SODIUM 1,000 UNIT/1ML VIAL IV ONE (09:38)
[2017-05-18] MEDS ORDERED: NORMAL SALINE 0.9% 10 ML SYR ONE (09:38)
[2017-05-18] MEDS ORDERED: THROMBIN (BOVINE) 5000 UNITS/VIAL TOP ONE (09:38)
[2017-05-18 09:39] LABS: BASOPHILS % 0.4 % (0.0-2.0); EOSINOPHILS % 3.6 % (0.0-5.0); HEMATOCRIT. 28.9 % (36.0-48.0); HEMOGLOBIN. 9.1 g/dL (12.0-16.0); LYMPHOCYTES % 32.6 % (20.0-50.0); MEAN CORPUSCULAR HEMOGLOBIN 27.4 pg (28.0-32.0); MEAN CORPUSCULAR VOLUME 87.2 fL (81.0-99.0); MEAN PLATELET VOLUME 9.8 fl (7.4-10.4); MONOCYTES % 9.6 % (2.0-8.0); NEUTROPHILS % 53.8 % (40.0-76.0); PLATELET 138 x1000/uL (130-400); RED BLOOD CELL COUNT 3.32 mill/uL (4.2-5.4); RED CELL DISTRIBUTION WIDTH 14.9 % (11.6-14.6)
[2017-05-18] MEDS ORDERED: LIDOCAINE HCL 1% 20ML VIAL (Pyxis) INJ ONE (09:41)
[2017-05-18] MEDS ORDERED: BUPIVACAINE HCL/PF 0.5% (5MG/ML) 10ML ONE (09:41)
[2017-05-18 10:00] VITALS: BP 136/63
[2017-05-18] MEDS ORDERED: MIDAZOLAM HCL 2 MG/2 ML VIAL ONE (11:46)
[2017-05-18] MEDS ORDERED: FENTANYL CITRATE/PF 50MCG/ML 2ML VIAL ONE (11:46)
[2017-05-18] MEDS ORDERED: LABETALOL HCL 20MG/4ML CARPUJECT IV PRN (12:45)
[2017-05-18] MEDS ORDERED: ONDANSETRON HCL 4MG/2ML VIAL IV PRN (12:45)
[2017-05-18] MEDS ORDERED: MEPERIDINE HCL/PF 25MG/ML CPJ IV PRN (12:45)
[2017-05-18] MEDS: HYDROMORPHONE HCL/PF 2MG/ML CPJ IV PRN ×2 (14:57→15:17)
[2017-05-18 16:00] VITALS: BP 174/63
[2017-05-18] MEDS: AMITRIPTYLINE 25MG TABLET PO SCH (17:00)
[2017-05-18] MEDS ORDERED: POTASSIUM CHLORIDE INJ 40 MEQ in DEXT 5% WATER 250 ML IV NR (18:00)
[2017-05-18 20:31] VITALS: BP 144/77
[2017-05-18] MEDS ORDERED: EPOETIN ALFA 10000UNITS/ML VIAL SUBCUT NR (21:00)
[2017-05-18] MEDS: INSULIN DETEMIR UD 100 UNITS/ML SYR SUBCUT SCH (22:30)
[2017-05-19] VITALS: BP 106/35
[2017-05-19] MEDS: BLOOD SUGAR DIAGNOSTIC STRIP TEST SCH ×4 (07:20→21:00)
[2017-05-19 07:52] VITALS: BP 149/67
[2017-05-19] MEDS: CLOPIDOGREL 75MG TABLET PO SCH (08:28)
[2017-05-19] MEDS: LORATADINE 10MG TABLET PO SCH (08:28)
[2017-05-19] MEDS: MORPHINE SULFATE 4 MG/ML CPJ (NOT FOR IM USE) IV PRN (08:28)
[2017-05-19] MEDS: PREGABALIN 75MG CAPSULE PO SCH (08:28)
[2017-05-19] MEDS: CALCITRIOL 0.25MCG CAPSULE PO SCH (08:28)
[2017-05-19] MEDS: INSULIN LISPRO 100 UNITS/ML SUBCUT SCH ×4 (08:42→22:26)
[2017-05-19] MEDS ORDERED: HYDROMORPHONE HCL/PF 2MG/ML CPJ IV PRN (08:45)
[2017-05-19] MEDS ORDERED: LABETALOL HCL 20MG/4ML CARPUJECT IV PRN (08:45)
[2017-05-19] MEDS ORDERED: ONDANSETRON HCL 4MG/2ML VIAL IV PRN (08:45)
[2017-05-19] MEDS ORDERED: MEPERIDINE HCL/PF 25MG/ML CPJ IV PRN (08:45)
[2017-05-19] MEDS: BENAZEPRIL 10MG TABLET PO SCH ×2 (09:00→17:00)
[2017-05-19] MEDS: NIFEDIPINE XL 30MG TAB PO SCH (09:00)
[2017-05-19] MEDS: ISOSORBIDE DINITRATE 30MG TABLET PO SCH ×2 (09:00→21:00)
[2017-05-19] MEDS: IRON SUCROSE COMPLEX 100 MG/5 ML ML IV SCH (09:24)
[2017-05-19] MEDS: PANTOPRAZOLE 40MG DR TABLET PO SCH (09:24)
[2017-05-19] MEDS: INSULIN DETEMIR UD 100 UNITS/ML SYR SUBCUT SCH ×2 (10:40→22:27)
[2017-05-19 10:56] LABS: BASOPHILS % 0.4 % (0.0-2.0); EOSINOPHILS % 1.1 % (0.0-5.0); HEMATOCRIT. 26.4 % (36.0-48.0); HEMOGLOBIN. 8.3 g/dL (12.0-16.0); LYMPHOCYTES % 25.6 % (20.0-50.0); MEAN CORPUSCULAR HEMOGLOBIN 27.4 pg (28.0-32.0); MEAN CORPUSCULAR VOLUME 87.3 fL (81.0-99.0); MEAN PLATELET VOLUME 10.3 fl (7.4-10.4); MONOCYTES % 9.3 % (2.0-8.0); NEUTROPHILS % 63.6 % (40.0-76.0); PLATELET 150 x1000/uL (130-400); RED BLOOD CELL COUNT 3.03 mill/uL (4.2-5.4); RED CELL DISTRIBUTION WIDTH 14.6 % (11.6-14.6)
[2017-05-19 12:00] VITALS: BP 141/48
[2017-05-19] MEDS ORDERED: EPOETIN ALFA 10000UNITS/ML VIAL SUBCUT PRN (12:00)
[2017-05-19] MEDS: HYDROMORPHONE HCL/PF 2MG/ML CPJ IV PRN ×3 (13:48→22:23)
[2017-05-19 16:00] VITALS: BP 151/64
[2017-05-19] MEDS: CARVEDILOL 25MG TABLET PO SCH ×2 (16:52→21:00)
[2017-05-19] MEDS: FUROSEMIDE 40MG TABLET PO SCH ×2 (16:52→17:15)
[2017-05-19] MEDS ORDERED: VANCOMYCIN 1500MG in DEXTROSE 5% WATER 250ML IV NR (17:00)
[2017-05-19 20:06] VITALS: BP 119/50
[2017-05-19] MEDS: AMITRIPTYLINE 25MG TABLET PO SCH (22:21)
[2017-05-19] MEDS: ATORVASTATIN CALCIUM 40MG TABLET PO SCH (22:21)
[2017-05-20] VITALS: BP 120/69
[2017-05-20] MEDS: HYDROMORPHONE HCL/PF 2MG/ML CPJ IV PRN ×3 (02:22→15:09)
[2017-05-20 04:00] VITALS: BP 112/52
[2017-05-20 07:00] LABS: BASOPHILS % 0.9 % (0.0-2.0); EOSINOPHILS % 4.6 % (0.0-5.0); HEMATOCRIT. 27.6 % (36.0-48.0); HEMOGLOBIN. 8.7 g/dL (12.0-16.0); MEAN CORPUSCULAR HEMOGLOBIN 27.7 pg (28.0-32.0); MEAN CORPUSCULAR VOLUME 88.4 fL (81.0-99.0); MEAN PLATELET VOLUME 10.1 fl (7.4-10.4); MONOCYTES % 8.3 % (2.0-8.0); NEUTROPHILS % 55.2 % (40.0-76.0); PLATELET 145 x1000/uL (130-400); RED BLOOD CELL COUNT 3.12 mill/uL (4.2-5.4); RED CELL DISTRIBUTION WIDTH 14.9 % (11.6-14.6)
[2017-05-20 08:00] VITALS: BP 108/26
[2017-05-20] MEDS: BLOOD SUGAR DIAGNOSTIC STRIP TEST SCH ×4 (08:13→21:14)
[2017-05-20] MEDS: PANTOPRAZOLE 40MG DR TABLET PO SCH (08:22)
[2017-05-20] MEDS: FUROSEMIDE 40MG TABLET PO SCH ×2 (08:22→17:15)
[2017-05-20] MEDS: INSULIN LISPRO 100 UNITS/ML SUBCUT SCH ×4 (08:35→22:02)
[2017-05-20] MEDS: CLOPIDOGREL 75MG TABLET PO SCH (09:00)
[2017-05-20] MEDS: NIFEDIPINE XL 30MG TAB PO SCH (09:00)
[2017-05-20] MEDS: ISOSORBIDE DINITRATE 30MG TABLET PO SCH ×2 (09:00→21:00)
[2017-05-20] MEDS: IRON SUCROSE COMPLEX 100 MG/5 ML ML IV SCH (09:00)
[2017-05-20] MEDS: CALCITRIOL 0.25MCG CAPSULE PO SCH (09:00)
[2017-05-20] MEDS: CARVEDILOL 25MG TABLET PO SCH ×3 (09:00→23:41)
[2017-05-20] MEDS: BENAZEPRIL 10MG TABLET PO SCH ×2 (09:00→17:00)
[2017-05-20] MEDS: PREGABALIN 75MG CAPSULE PO SCH (09:00)
[2017-05-20] MEDS: LORATADINE 10MG TABLET PO SCH (09:00)
[2017-05-20] MEDS: INSULIN DETEMIR UD 100 UNITS/ML SYR SUBCUT SCH ×2 (10:25→22:01)
[2017-05-20 10:38] LABS: HEPATITIS B SURFACE ANTIGEN NEGATIVE
[2017-05-20 12:00] VITALS: BP 111/82
[2017-05-20] MEDS ORDERED: HEPARIN SODIUM 1,000 UNIT/1ML VIAL IV ONE (15:45)
[2017-05-20] MEDS ORDERED: HEPARIN 5000 UNITS/ML VIAL SUBCUT NR (15:45)
[2017-05-20 16:00] VITALS: BP 132/45
[2017-05-20] MEDS ORDERED: HEPARIN SODIUM 1,000 UNIT/1ML VIAL IV NR (16:21)
[2017-05-20] MEDS: AMITRIPTYLINE 25MG TABLET PO SCH (17:00)
[2017-05-20 20:00] VITALS: BP 133/37
[2017-05-20] MEDS ORDERED: EPOETIN ALFA 10000UNITS/ML VIAL SUBCUT SCH (21:00)
[2017-05-20] MEDS: ATORVASTATIN CALCIUM 40MG TABLET PO SCH (21:58)
[2017-05-20] MEDS: HYDROCODONE/ACETAMINOPHEN 5/325MG TABLET PO PRN (23:41)
[2017-05-21] VITALS: BP 162/57
[2017-05-21 04:00] VITALS: BP 134/52
[2017-05-21] MEDS: FUROSEMIDE 40MG TABLET PO SCH ×2 (06:15→17:07)
[2017-05-21] MEDS: PANTOPRAZOLE 40MG DR TABLET PO SCH (06:15)
[2017-05-21] MEDS: HYDROCODONE/ACETAMINOPHEN 5/325MG TABLET PO PRN ×2 (06:17→11:05)
[2017-05-21] MEDS: BLOOD SUGAR DIAGNOSTIC STRIP TEST SCH ×3 (06:47→17:08)
[2017-05-21] MEDS: INSULIN LISPRO 100 UNITS/ML SUBCUT SCH ×3 (07:50→17:08)
[2017-05-21] MEDS ORDERED: HEPATITIS B VIRUS VACCINE-PF 10 MCG/0.5 VIAL IM NR (08:00)
[2017-05-21] MEDS: NIFEDIPINE XL 30MG TAB PO SCH (09:00)
[2017-05-21] MEDS: CARVEDILOL 25MG TABLET PO SCH ×2 (09:00→11:04)
[2017-05-21] MEDS: LORATADINE 10MG TABLET PO SCH (09:00)
[2017-05-21] MEDS: ISOSORBIDE DINITRATE 30MG TABLET PO SCH (09:00)
[2017-05-21] MEDS: IRON SUCROSE COMPLEX 100 MG/5 ML ML IV SCH (09:32)
[2017-05-21] MEDS: CALCITRIOL 0.25MCG CAPSULE PO SCH (11:03)
[2017-05-21] MEDS: BENAZEPRIL 10MG TABLET PO SCH ×2 (11:03→17:00)
[2017-05-21] MEDS: CLOPIDOGREL 75MG TABLET PO SCH (11:03)
[2017-05-21] MEDS: PREGABALIN 75MG CAPSULE PO SCH (11:04)
[2017-05-21] MEDS: INSULIN DETEMIR UD 100 UNITS/ML SYR SUBCUT SCH (11:10)
[2017-05-21 12:00] VITALS: BP 107/38
[2017-05-21 16:04] VITALS: BP 165/88
[2017-05-21] MEDS: AMITRIPTYLINE 25MG TABLET PO SCH (17:00)
[2017-05-22] MEDS ORDERED: MEDICATION NOT ON FORMULARY EA (Cholecalciferol (Vitamin D) 50,000 UNIT) PO SCH (09:00)
[2017-05-22] MEDS ORDERED: ERGOCALCIFEROL 50000UNITS CAPSULE PO SCH (09:00)
[2017-05-22] MEDS ORDERED: FAMOTIDINE 20MG TABLET PO SCH (09:00)
== END 2017-05-21 18:10 | disposition home or self-care (01) | DRG 444 ==
LOC: ER 12:54 → 6WST 13:50 → EDBEDREQ 13:53 → ENRESERV 20:34 → 6WST 23:57
PROVIDERS: ADMIT Internal Medicine; ATTEND Internal Medicine
PROC: 02PYX3Z Removal of Infusion Device from Great Vessel, External Approach (ICD-10-PCS; 2017-05-16)
PROC: 02HV33Z Insertion of Infusion Device into Superior Vena Cava, Percutaneous Approach (ICD-10-PCS; 2017-05-16)
PROC: B5181ZA Fluoroscopy of Superior Vena Cava using Low Osmolar Contrast, Guidance (ICD-10-PCS; 2017-05-16)
PROC: 02HV33Z Insertion of Infusion Device into Superior Vena Cava, Percutaneous Approach (ICD-10-PCS; 2017-05-17)
PROC: B5181ZA Fluoroscopy of Superior Vena Cava using Low Osmolar Contrast, Guidance (ICD-10-PCS; 2017-05-17)
PROC: B548ZZA Ultrasonography of Superior Vena Cava, Guidance (ICD-10-PCS; 2017-05-17)
PROC: 03180ZD Bypass Left Brachial Artery to Upper Arm Vein, Open Approach (ICD-10-PCS; principal; 2017-05-18 10:30)
PROC: 5A1D70Z Performance of Urinary Filtration, Intermittent, Less than 6 Hours Per Day (ICD-10-PCS; 2017-05-19)
PROC: 5A1D70Z Performance of Urinary Filtration, Intermittent, Less than 6 Hours Per Day (ICD-10-PCS; 2017-05-20)
PROC: 5A1D70Z Performance of Urinary Filtration, Intermittent, Less than 6 Hours Per Day (ICD-10-PCS; 2017-05-21)
DX: T82.49XA Other complication of vascular dialysis catheter, initial encounter (principal); E46 Unspecified protein-calorie malnutrition; I12.0 Hypertensive chronic kidney disease with stage 5 chronic kidney disease or end stage renal disease; E87.70 Fluid overload, unspecified; E87.5 Hyperkalemia; E11.22 Type 2 diabetes mellitus with diabetic chronic kidney disease; N18.6 End stage renal disease; E87.6 Hypokalemia; D63.1 Anemia in chronic kidney disease; E66.9 Obesity, unspecified; F32.9 Major depressive disorder, single episode, unspecified; F41.9 Anxiety disorder, unspecified; E78.00 Pure hypercholesterolemia, unspecified; E78.5 Hyperlipidemia, unspecified; G89.29 Other chronic pain; Y83.2 Surgical operation with anastomosis, bypass or graft as the cause of abnormal reaction of the patient, or of later complication, without mention of misadventure at the time of the procedure; Y71.2 Prosthetic and other implants, materials and accessory cardiovascular devices associated with adverse incidents; Z79.899 Other long term (current) drug therapy; Z90.49 Acquired absence of other specified parts of digestive tract; Z99.2 Dependence on renal dialysis; Z79.82 Long term (current) use of aspirin; Z79.4 Long term (current) use of insulin; Z68.39 Body mass index [BMI] 39.0-39.9, adult
CPT/HCPCS: 36415; 36569; 36581; 71010; 76937; 77001; 80048; 80053; 80061; 80202; 82962; 84484; 85025; 85610; 85730; 86706; 86803; 87040; 87340; 90743; 93005; 93971; 96365; 96375; 99285; A4216; A6261; C1725; C1750; C1769; C1893; J0885; J1170; J1642; J1644; J1815; J2250; J2270; J2405; J3010; J3370; J3480; J3490; J7030; J7040; J7060

== ENCOUNTER 2018-02-01 09:13 | Inpatient (IN) | payer OTHER ==
[2018-02-01] VITALS (25 sets, daily range): BP systolic 67–180; BP diastolic 28–118
[~2018-02-01] VITALS: Ht 165.1 cm; Wt 134.5 kg
[~2018-02-01 09:13] MED LIST changes: +AMLO25PO MC; -CARV25TA47 PO; -CHOL20004 PO; +CYCL5TAB PO; -DOCU-138 PO; -ERGO2000 PO; +FERR325T6 PO; -FLEXERIL PO; -FLONASE NAS; +FURO-151 PO; -FURO40TA5 PO; +GUAI120S2 PO; -HUMALOG; +HYDR-4009 PO; -HYDR-519 PO; +INSLIS SUBCUT; -INSU3INS6 SUBCUT; -ISOS30TA6 PO; -LEVO750T46 PO; +LIDO30CR TP; +LOSA50TA20 PO; -METO-293 PO; -NIFE60TA64 PO; -ONDA4TAB51 PO; +ONDA8TAB6 PO; -PLAVIX PO; -SERT-112 PO; +SERT100T PO; +TC1U15 TOP; -TRIA15OI8 TP
[2018-02-01] MEDS ORDERED: ACETAMINOPHEN 325MG TABLET PO STA (09:50)
[2018-02-01] MEDS ORDERED: SODIUM CHLORIDE 0.9% 1000ML BAG (SEPSIS BOLUS) IV ONE (10:00)
[2018-02-01] MEDS ORDERED: PIPERACILLIN/TAZ 3.375G PREMIX 50 ML IV ONE (10:00)
[2018-02-01] MEDS ORDERED: ACETAMINOPHEN 325MG TABLET PO ONE ×2 (10:00)
[2018-02-01] MEDS ORDERED: VANCOMYCIN 1 G PREMIX 200 ML IV SCH (10:00)
[2018-02-01 10:24] LABS: BASOPHILS % 0.3 % (0.0-2.0); HEMATOCRIT. 24.6 % (36.0-48.0); LYMPHOCYTES % 15.2 % (20.0-50.0); MEAN CORPUSCULAR VOLUME 86.4 fL (81.0-99.0); MEAN PLATELET VOLUME 9.5 fl (7.4-10.4); MONOCYTES % 2.2 % (2.0-8.0); NEUTROPHILS % 81.3 % (40.0-76.0); PLATELET 271 x1000/uL (130-400); RED BLOOD CELL COUNT 2.85 mill/uL (4.2-5.4); RED CELL DISTRIBUTION WIDTH 15.8 % (11.6-14.6)
[2018-02-01 10:31] LABS: CHLORIDE 100 mEq/L (98-107)
[2018-02-01 10:33] LABS: INR 1.2
[2018-02-01 10:51] LABS: B-HCG QUANTITATIVE < 1 mIU/mL (<3)
[2018-02-01] MEDS ORDERED: SODIUM POLYSTYRENE SULFONATE 15 G/60 ML BOT PO ONE (11:00)
[2018-02-01] MEDS ORDERED: INSULIN REGULAR (HUMULIN R) 300UNITS/3ML IV ONE (11:00)
[2018-02-01] MEDS ORDERED: DEXTROSE 50% WATER 50ML SYRINGE IV ONE (11:00)
[2018-02-01] MEDS ORDERED: SODIUM BICARBONATE 8.4% 1 MEQ/ML 50ML SYR IV ONE (11:00)
[2018-02-01] MEDS ORDERED: IBUPROFEN 400MG TABLET PO ONE (12:00)
[2018-02-01] MEDS ORDERED: LIDOCAINE HCL/PF 1% 10 MG/ML 5ML VIAL ONE ×4 (12:37→15:01)
[2018-02-01] MEDS ORDERED: HEPARIN 1000 UNITS/ML 10ML ONE (13:53)
[2018-02-01] MEDS ORDERED: SODIUM BICARBONATE 4% (2.4MEQ) 5ML VIAL IV ONE (13:53)
[2018-02-01] MEDS ORDERED: IOHEXOL-300 50 ML BOTTLE IV ONE (14:25)
[2018-02-01] MEDS ORDERED: GELATIN SPONGE,ABSORBABLE 12-7MM SPONGE ONE (15:15)
[2018-02-01] MEDS ORDERED: CLONIDINE 0.1MG TABLET PO PRN (17:00)
[2018-02-01] MEDS ORDERED: GUAIFENESIN 200MG/10ML SUGAR FREE UDC PO PRN (17:00)
[2018-02-01] MEDS ORDERED: MAGNESIUM/ALUMINUM HYDROXIDE/SIMETHICONE 30ML UDC PO PRN (17:00)
[2018-02-01] MEDS ORDERED: DOCUSATE SODIUM 100MG CAPSULE PO PRN (17:00)
[2018-02-01] MEDS ORDERED: PIPERACILLIN/TAZ 3.375G PREMIX 50 ML IV SCH (17:00)
[2018-02-01] MEDS: MIDODRINE HCL 2.5MG TABLET PO SCH (17:48)
[2018-02-01] MEDS ORDERED: NOREPINEPHRINE 4 MG in DEXT 5% WATER 246 ML IV PRN (19:00)
[2018-02-01] MEDS ORDERED: DEXTROSE 50% WATER 50ML SYRINGE IV PRN ×2 (20:00)
[2018-02-01] MEDS: PIPERACILLIN/TAZ 2.25G PREMIX 50 ML IV SCH (20:17)
[2018-02-01] MEDS ORDERED: SORBITOL 70% SOLN 30ML PO NR (20:30)
[2018-02-01] MEDS ORDERED: SODIUM POLYSTYRENE SULFONATE 15 G/60 ML BOT PO NR (20:30)
[2018-02-01] MEDS ORDERED: BLOOD SUGAR DIAGNOSTIC STRIP TEST SCH (21:00)
[2018-02-01] MEDS: INSULIN LISPRO 100 UNITS/ML SUBCUT SCH (21:00)
[2018-02-01] MEDS: BLOOD SUGAR DIAGNOSTIC STRIP TEST SCH (21:01)
[2018-02-01] MEDS: HYDROCODONE/ACETAMINOPHEN 5/325MG TABLET PO PRN (21:49)
[2018-02-01] MEDS ORDERED: VANCOMYCIN 1500MG in DEXTROSE 5% WATER 250ML IV NR (22:00)
[2018-02-02] VITALS (81 sets, daily range): BP systolic 97–160; BP diastolic 35–114
[2018-02-02] MEDS ORDERED: EPOETIN ALFA 4000UNITS/ML VIAL SUBCUT SCH (03:00)
[2018-02-02] MEDS: PIPERACILLIN/TAZ 2.25G PREMIX 50 ML IV SCH ×3 (03:05→18:23)
[2018-02-02 06:02] LABS: BASOPHILS % 0.3 % (0.0-2.0); EOSINOPHILS % 1.2 % (0.0-5.0); HEMATOCRIT. 21.2 % (36.0-48.0); LYMPHOCYTES % 19.4 % (20.0-50.0); MEAN CORPUSCULAR HEMOGLOBIN 28.3 pg (28.0-32.0); MEAN CORPUSCULAR VOLUME 90.8 fL (81.0-99.0); MEAN PLATELET VOLUME 9.6 fl (7.4-10.4); MONOCYTES % 8.9 % (2.0-8.0); NEUTROPHILS % 70.2 % (40.0-76.0); PLATELET 216 x1000/uL (130-400); RED BLOOD CELL COUNT 2.33 mill/uL (4.2-5.4); RED CELL DISTRIBUTION WIDTH 15.6 % (11.6-14.6)
[2018-02-02 06:13] LABS: HEMOGLOBIN. 6.6 g/dL (12.0-16.0)
[2018-02-02 06:20] LABS: CHLORIDE 105 mEq/L (98-107)
[2018-02-02 06:33] LABS: LDL CHOLESTEROL 49 mg/dL (5-100)
[2018-02-02 06:35] LABS: HDL CHOLESTEROL 33 mg/dL (40-59)
[2018-02-02] MEDS: BLOOD SUGAR DIAGNOSTIC STRIP TEST SCH ×4 (06:51→21:01)
[2018-02-02] MEDS: INSULIN LISPRO 100 UNITS/ML SUBCUT SCH ×4 (06:51→21:01)
[2018-02-02] MEDS: SEVELAMER CARBONATE 800 MG TABLET PO SCH ×2 (06:52→16:38)
[2018-02-02] MEDS ORDERED: SEVELAMER CARBONATE 800 MG TABLET PO SCH (07:00)
[2018-02-02] MEDS: AMLODIPINE 10MG TABLET PO SCH (09:00)
[2018-02-02] MEDS: MIDODRINE HCL 2.5MG TABLET PO SCH ×5 (09:14→16:52)
[2018-02-02] MEDS: HYDROCODONE/ACETAMINOPHEN 5/325MG TABLET PO PRN (12:55)
[2018-02-02] MEDS: MORPHINE SULFATE 4 MG/ML CPJ (NOT FOR IM USE) IV PRN ×2 (14:27→23:43)
[2018-02-02] MEDS ORDERED: VANCOMYCIN 1 G PREMIX 200 ML IV NR (17:00)
[2018-02-02 17:59] LABS: TOTAL IRON BINDING CAPACITY 111 ug/dL (250-450)
[2018-02-03] VITALS (42 sets, daily range): BP systolic 70–195; BP diastolic 36–134
[2018-02-03] MEDS: PIPERACILLIN/TAZ 2.25G PREMIX 50 ML IV SCH ×3 (02:07→18:37)
[2018-02-03 05:28] LABS: HEMATOCRIT. 24.1 % (36.0-48.0); HEMOGLOBIN. 8.1 g/dL (12.0-16.0); MEAN CORPUSCULAR HEMOGLOBIN 29.3 pg (28.0-32.0); PLATELET 227 x1000/uL (130-400); RED BLOOD CELL COUNT 2.77 mill/uL (4.2-5.4); RED CELL DISTRIBUTION WIDTH 15.7 % (11.6-14.6)
[2018-02-03] MEDS: SEVELAMER CARBONATE 800 MG TABLET PO SCH ×2 (06:32→17:26)
[2018-02-03] MEDS: BLOOD SUGAR DIAGNOSTIC STRIP TEST SCH ×4 (06:32→21:35)
[2018-02-03] MEDS: INSULIN LISPRO 100 UNITS/ML SUBCUT SCH ×4 (06:32→21:44)
[2018-02-03] MEDS: MIDODRINE HCL 2.5MG TABLET PO SCH ×3 (09:00→17:26)
[2018-02-03] MEDS: AMLODIPINE 10MG TABLET PO SCH (09:00)
[2018-02-03] MEDS: HYDROCODONE/ACETAMINOPHEN 5/325MG TABLET PO PRN ×2 (09:58→22:46)
[2018-02-03 10:15] LABS: PLATELET ESTIMATE NORMAL
[2018-02-03] MEDS: MORPHINE SULFATE 4 MG/ML CPJ (NOT FOR IM USE) IV PRN (14:10)
[2018-02-04] VITALS (11 sets, daily range): BP systolic 104–141; BP diastolic 39–76
[2018-02-04] MEDS: PIPERACILLIN/TAZ 2.25G PREMIX 50 ML IV SCH ×3 (03:57→17:52)
[2018-02-04] MEDS: DIPHENHYDRAMINE 50MG/ML VIAL IV PRN ×2 (05:23→13:18)
[2018-02-04] MEDS: INSULIN LISPRO 100 UNITS/ML SUBCUT SCH ×4 (07:40→20:18)
[2018-02-04] MEDS: SEVELAMER CARBONATE 800 MG TABLET PO SCH ×2 (07:40→17:54)
[2018-02-04 08:41] LABS: BASOPHILS % 1.3 % (0.0-2.0); HEMATOCRIT. 22.8 % (36.0-48.0); HEMOGLOBIN. 7.6 g/dL (12.0-16.0); LYMPHOCYTES % 40.5 % (20.0-50.0); MEAN CORPUSCULAR HEMOGLOBIN 28.8 pg (28.0-32.0); MEAN CORPUSCULAR VOLUME 85.9 fL (81.0-99.0); MEAN PLATELET VOLUME 9.1 fl (7.4-10.4); MONOCYTES % 4.5 % (2.0-8.0); NEUTROPHILS % 50.7 % (40.0-76.0); PLATELET 209 x1000/uL (130-400); RED BLOOD CELL COUNT 2.66 mill/uL (4.2-5.4); RED CELL DISTRIBUTION WIDTH 15.3 % (11.6-14.6)
[2018-02-04] MEDS: MIDODRINE HCL 2.5MG TABLET PO SCH ×3 (08:55→16:56)
[2018-02-04] MEDS: BISACODYL 5MG TABLET PO SCH ×2 (08:55→16:56)
[2018-02-04] MEDS: DOCUSATE SODIUM 100MG CAPSULE PO SCH ×3 (08:55→16:56)
[2018-02-04] MEDS: AMLODIPINE 10MG TABLET PO SCH (08:55)
[2018-02-04] MEDS ORDERED: HEPARIN SODIUM 1,000 UNIT/1ML VIAL IV ONE (09:45)
[2018-02-04] MEDS ORDERED: HEPARIN SODIUM 1,000 UNIT/1ML VIAL IV NR (10:15)
[2018-02-04] MEDS: BLOOD SUGAR DIAGNOSTIC STRIP TEST SCH ×3 (11:26→20:16)
[2018-02-04] MEDS: APIXABAN 2.5 MG TABLET PO SCH ×2 (11:29→16:56)
[2018-02-04] MEDS: MORPHINE SULFATE 4 MG/ML CPJ (NOT FOR IM USE) IV PRN (13:19)
[2018-02-04] MEDS: HYDROCODONE/ACETAMINOPHEN 5/325MG TABLET PO PRN (23:00)
[2018-02-05] MEDS: PIPERACILLIN/TAZ 2.25G PREMIX 50 ML IV SCH (03:58)
[2018-02-05 04:00] VITALS: BP 153/69
[2018-02-05] MEDS: MORPHINE SULFATE 4 MG/ML CPJ (NOT FOR IM USE) IV PRN ×2 (04:10→21:40)
[2018-02-05] MEDS: BLOOD SUGAR DIAGNOSTIC STRIP TEST SCH ×4 (06:13→20:26)
[2018-02-05] MEDS: INSULIN LISPRO 100 UNITS/ML SUBCUT SCH ×4 (06:30→20:26)
[2018-02-05 08:00] VITALS: BP 133/97
[2018-02-05] MEDS: MIDODRINE HCL 2.5MG TABLET PO SCH ×3 (09:00→17:00)
[2018-02-05] MEDS: SEVELAMER CARBONATE 800 MG TABLET PO SCH ×2 (09:36→18:06)
[2018-02-05] MEDS: APIXABAN 2.5 MG TABLET PO SCH ×2 (09:36→17:02)
[2018-02-05] MEDS: DOCUSATE SODIUM 100MG CAPSULE PO SCH ×3 (09:36→17:02)
[2018-02-05] MEDS: AMLODIPINE 10MG TABLET PO SCH (09:37)
[2018-02-05] MEDS: BISACODYL 5MG TABLET PO SCH ×2 (09:41→17:03)
[2018-02-05 12:00] VITALS: BP 144/60
[2018-02-05 16:00] VITALS: BP 163/62
[2018-02-05 20:00] VITALS: BP 123/101
[2018-02-05] MEDS ORDERED: DOXYCYCLINE 100 MG in DEXT 5% WATER 100 ML IV NR (23:00)
[2018-02-06] VITALS: BP 151/97
[2018-02-06 04:00] VITALS: BP 132/75
[2018-02-06] MEDS: BLOOD SUGAR DIAGNOSTIC STRIP TEST SCH ×4 (05:46→21:00)
[2018-02-06] MEDS: INSULIN LISPRO 100 UNITS/ML SUBCUT SCH ×4 (05:53→21:28)
[2018-02-06] MEDS: HYDROCODONE/ACETAMINOPHEN 5/325MG TABLET PO PRN ×2 (05:57→23:38)
[2018-02-06] MEDS: SEVELAMER CARBONATE 800 MG TABLET PO SCH ×2 (07:40→17:40)
[2018-02-06 07:55] VITALS: BP 134/57
[2018-02-06 08:04] LABS: BASOPHILS % 0.5 % (0.0-2.0); EOSINOPHILS % 1.7 % (0.0-5.0); HEMATOCRIT. 25.4 % (36.0-48.0); HEMOGLOBIN. 8.5 g/dL (12.0-16.0); LYMPHOCYTES % 24.1 % (20.0-50.0); MEAN CORPUSCULAR HEMOGLOBIN 28.6 pg (28.0-32.0); MEAN CORPUSCULAR VOLUME 85.2 fL (81.0-99.0); MEAN PLATELET VOLUME 9.1 fl (7.4-10.4); MONOCYTES % 5.6 % (2.0-8.0); NEUTROPHILS % 68.1 % (40.0-76.0); PLATELET 250 x1000/uL (130-400); RED BLOOD CELL COUNT 2.98 mill/uL (4.2-5.4); RED CELL DISTRIBUTION WIDTH 15.4 % (11.6-14.6)
[2018-02-06 08:12] LABS: CHLORIDE 106 mEq/L (98-107)
[2018-02-06] MEDS: DOCUSATE SODIUM 100MG CAPSULE PO SCH ×4 (09:00→18:24)
[2018-02-06] MEDS: BISACODYL 5MG TABLET PO SCH ×3 (09:00→18:24)
[2018-02-06] MEDS: MIDODRINE HCL 2.5MG TABLET PO SCH ×3 (09:00→17:00)
[2018-02-06] MEDS: DOXYCYCLINE 100 MG in DEXT 5% WATER 100 ML IV SCH ×2 (09:57→21:27)
[2018-02-06] MEDS: APIXABAN 2.5 MG TABLET PO SCH ×2 (09:57→18:24)
[2018-02-06] MEDS: AMLODIPINE 10MG TABLET PO SCH (09:58)
[2018-02-06] MEDS: DIPHENHYDRAMINE 50MG/ML VIAL IV PRN (11:57)
[2018-02-06 12:00] VITALS: BP 152/53
[2018-02-06] MEDS ORDERED: VANCOMYCIN 1 G PREMIX 200 ML IV SCH (14:00)
[2018-02-06 16:00] VITALS: BP 165/86
[2018-02-06 19:46] VITALS: BP 144/75
[2018-02-06] MEDS ORDERED: IRON SUCROSE COMPLEX 100 MG/5 ML ML IV SCH (20:00)
[2018-02-07] VITALS: BP 136/91
[2018-02-07 04:00] VITALS: BP 144/88
[2018-02-07] MEDS ORDERED: EPOETIN ALFA 10000UNITS/ML VIAL SUBCUT NR (05:00)
[2018-02-07] MEDS: BLOOD SUGAR DIAGNOSTIC STRIP TEST SCH ×4 (06:11→20:32)
[2018-02-07] MEDS: INSULIN LISPRO 100 UNITS/ML SUBCUT SCH ×4 (06:45→20:36)
[2018-02-07 08:17] VITALS: BP 149/57
[2018-02-07] MEDS: SEVELAMER CARBONATE 800 MG TABLET PO SCH ×2 (10:52→18:29)
[2018-02-07] MEDS: DOXYCYCLINE 100 MG in DEXT 5% WATER 100 ML IV SCH ×2 (10:55→20:22)
[2018-02-07] MEDS: BISACODYL 5MG TABLET PO SCH ×2 (10:56→17:00)
[2018-02-07] MEDS: DOCUSATE SODIUM 100MG CAPSULE PO SCH ×3 (10:56→17:00)
[2018-02-07] MEDS: AMLODIPINE 10MG TABLET PO SCH (10:57)
[2018-02-07] MEDS: APIXABAN 2.5 MG TABLET PO SCH ×2 (10:57→18:29)
[2018-02-07] MEDS: MIDODRINE HCL 2.5MG TABLET PO SCH ×3 (10:58→18:33)
[2018-02-07 12:37] VITALS: BP 167/68
[2018-02-07] MEDS: HYDROCODONE/ACETAMINOPHEN 5/325MG TABLET PO PRN ×2 (13:47→18:30)
[2018-02-07 16:07] VITALS: BP 132/61
[2018-02-07] MEDS: ONDANSETRON HCL 4MG/2ML VIAL IV PRN (18:29)
[2018-02-07 20:00] VITALS: BP 137/52
[2018-02-08] VITALS: BP 152/61
[2018-02-08] MEDS: DIPHENHYDRAMINE 50MG/ML VIAL IV PRN (00:09)
[2018-02-08] MEDS: HYDROCODONE/ACETAMINOPHEN 5/325MG TABLET PO PRN ×2 (00:10→20:34)
[2018-02-08 04:00] VITALS: BP 152/61
[2018-02-08] MEDS: INSULIN LISPRO 100 UNITS/ML SUBCUT SCH ×4 (06:41→20:32)
[2018-02-08] MEDS: BLOOD SUGAR DIAGNOSTIC STRIP TEST SCH ×4 (06:41→20:27)
[2018-02-08] MEDS: SEVELAMER CARBONATE 800 MG TABLET PO SCH ×2 (07:40→17:00)
[2018-02-08] MEDS: DOXYCYCLINE 100 MG in DEXT 5% WATER 100 ML IV SCH ×2 (08:25→20:20)
[2018-02-08 08:30] VITALS: BP 125/63
[2018-02-08] MEDS: BISACODYL 5MG TABLET PO SCH ×2 (09:00→17:07)
[2018-02-08] MEDS: MIDODRINE HCL 2.5MG TABLET PO SCH ×3 (09:00→16:00)
[2018-02-08] MEDS: APIXABAN 2.5 MG TABLET PO SCH ×3 (09:00→17:07)
[2018-02-08] MEDS: AMLODIPINE 10MG TABLET PO SCH (09:00)
[2018-02-08] MEDS: DOCUSATE SODIUM 100MG CAPSULE PO SCH ×3 (09:00→17:07)
[2018-02-08] MEDS: MORPHINE SULFATE 4 MG/ML CPJ (NOT FOR IM USE) IV PRN (10:14)
[2018-02-08 12:35] VITALS: BP 116/66
[2018-02-08] MEDS ORDERED: HEPARIN SODIUM 1,000 UNIT/1ML VIAL IV SCH (15:15)
[2018-02-08 16:45] VITALS: BP 146/43
[2018-02-08 20:00] VITALS: BP 144/57
[2018-02-09] VITALS: BP 132/54
[2018-02-09] MEDS: DIPHENHYDRAMINE 50MG/ML VIAL IV PRN ×3 (00:01→20:05)
[2018-02-09] MEDS: ACETAMINOPHEN 325MG TABLET PO PRN (01:26)
[2018-02-09 04:00] VITALS: BP 150/70
[2018-02-09] MEDS: BLOOD SUGAR DIAGNOSTIC STRIP TEST SCH ×4 (06:37→20:33)
[2018-02-09] MEDS ORDERED: GELATIN SPONGE,ABSORBABLE SZ 100 ONE (07:40)
[2018-02-09] MEDS ORDERED: BACITRACIN ZINC 15GM TUBE TOP ONE (07:40)
[2018-02-09 08:00] VITALS: BP 129/70
[2018-02-09] MEDS: APIXABAN 2.5 MG TABLET PO SCH ×2 (08:41→14:21)
[2018-02-09] MEDS: AMLODIPINE 10MG TABLET PO SCH (09:00)
[2018-02-09] MEDS: BISACODYL 5MG TABLET PO SCH ×2 (09:00→17:27)
[2018-02-09] MEDS: MIDODRINE HCL 2.5MG TABLET PO SCH ×3 (09:00→17:27)
[2018-02-09] MEDS: DOXYCYCLINE 100 MG in DEXT 5% WATER 100 ML IV SCH ×2 (09:40→20:04)
[2018-02-09] MEDS: SEVELAMER CARBONATE 800 MG TABLET PO SCH ×2 (09:40→17:40)
[2018-02-09] MEDS: DOCUSATE SODIUM 100MG CAPSULE PO SCH ×3 (09:41→17:27)
[2018-02-09] MEDS: INSULIN LISPRO 100 UNITS/ML SUBCUT SCH ×4 (09:55→20:33)
[2018-02-09] MEDS: MORPHINE SULFATE 4 MG/ML CPJ (NOT FOR IM USE) IV PRN ×2 (10:01→17:48)
[2018-02-09 12:00] VITALS: BP 141/66
[2018-02-09 16:00] VITALS: BP 142/67
[2018-02-09 20:00] VITALS: BP 133/58
[2018-02-10] VITALS: BP 137/58
[2018-02-10] MEDS: DIPHENHYDRAMINE 50MG/ML VIAL IV PRN ×2 (00:29→23:55)
[2018-02-10] MEDS: HYDROCODONE/ACETAMINOPHEN 5/325MG TABLET PO PRN ×2 (00:31→23:55)
[2018-02-10] MEDS ORDERED: EPOETIN ALFA 10000UNITS/ML VIAL SUBCUT SCH (02:00)
[2018-02-10 04:00] VITALS: BP 158/69
[2018-02-10] MEDS: SEVELAMER CARBONATE 800 MG TABLET PO SCH ×2 (06:53→17:40)
[2018-02-10] MEDS: INSULIN LISPRO 100 UNITS/ML SUBCUT SCH ×4 (07:37→20:35)
[2018-02-10] MEDS: BLOOD SUGAR DIAGNOSTIC STRIP TEST SCH ×4 (07:37→20:35)
[2018-02-10 08:00] VITALS: BP 144/66
[2018-02-10] MEDS: APIXABAN 2.5 MG TABLET PO SCH ×2 (09:00→16:54)
[2018-02-10] MEDS: MIDODRINE HCL 2.5MG TABLET PO SCH ×5 (09:00→17:00)
[2018-02-10] MEDS: BISACODYL 5MG TABLET PO SCH ×3 (09:00→18:38)
[2018-02-10] MEDS: DOCUSATE SODIUM 100MG CAPSULE PO SCH ×4 (09:00→18:38)
[2018-02-10] MEDS: DOXYCYCLINE 100 MG in DEXT 5% WATER 100 ML IV SCH (09:00)
[2018-02-10] MEDS: AMLODIPINE 10MG TABLET PO SCH (09:00)
[2018-02-10] MEDS: ONDANSETRON HCL 4MG/2ML VIAL IV PRN ×2 (09:24→17:50)
[2018-02-10] MEDS: MORPHINE SULFATE 4 MG/ML CPJ (NOT FOR IM USE) IV PRN (09:25)
[2018-02-10] MEDS ORDERED: HEPARIN SODIUM 1,000 UNIT/1ML VIAL IV NR (10:00)
[2018-02-10 12:00] VITALS: BP 127/61
[2018-02-10 16:00] VITALS: BP 107/55
[2018-02-10] MEDS: DOXYCYCLINE HYCLATE 100MG CAPSULE PO SCH (18:38)
[2018-02-10 20:00] VITALS: BP 118/62
[2018-02-11] VITALS: BP 115/71
[2018-02-11 04:00] VITALS: BP 104/62
[2018-02-11] MEDS: DOXYCYCLINE HYCLATE 100MG CAPSULE PO SCH ×2 (06:07→17:20)
[2018-02-11] MEDS: BLOOD SUGAR DIAGNOSTIC STRIP TEST SCH ×4 (06:07→20:16)
[2018-02-11] MEDS: INSULIN LISPRO 100 UNITS/ML SUBCUT SCH ×4 (06:20→20:15)
[2018-02-11 08:00] VITALS: BP 143/69
[2018-02-11] MEDS: APIXABAN 2.5 MG TABLET PO SCH ×2 (08:03→17:00)
[2018-02-11] MEDS: MIDODRINE HCL 2.5MG TABLET PO SCH ×3 (08:16→17:00)
[2018-02-11] MEDS: SEVELAMER CARBONATE 800 MG TABLET PO SCH ×2 (08:20→17:20)
[2018-02-11] MEDS: BISACODYL 5MG TABLET PO SCH ×2 (08:21→17:20)
[2018-02-11] MEDS: DOCUSATE SODIUM 100MG CAPSULE PO SCH ×3 (08:21→17:20)
[2018-02-11] MEDS: AMLODIPINE 10MG TABLET PO SCH (08:21)
[2018-02-11] MEDS: MORPHINE SULFATE 4 MG/ML CPJ (NOT FOR IM USE) IV PRN ×2 (10:21→21:51)
[2018-02-11 16:00] VITALS: BP 139/63
[2018-02-11] MEDS: PANTOPRAZOLE 40MG DR TABLET PO SCH (20:28)
[2018-02-11 22:00] VITALS: BP 135/75
[2018-02-11] MEDS: ONDANSETRON HCL 4MG/2ML VIAL IV PRN (22:55)
[2018-02-11] MEDS: DIPHENHYDRAMINE 50MG/ML VIAL IV PRN (22:55)
[2018-02-12] VITALS: BP 127/57
[2018-02-12 04:00] VITALS: BP 135/72
[2018-02-12] MEDS: PANTOPRAZOLE 40MG DR TABLET PO SCH (06:33)
[2018-02-12] MEDS: DOXYCYCLINE HYCLATE 100MG CAPSULE PO SCH ×2 (06:33→17:23)
[2018-02-12] MEDS: INSULIN LISPRO 100 UNITS/ML SUBCUT SCH ×4 (06:36→20:15)
[2018-02-12] MEDS: BLOOD SUGAR DIAGNOSTIC STRIP TEST SCH ×4 (06:37→20:15)
[2018-02-12] MEDS: APIXABAN 2.5 MG TABLET PO SCH ×2 (07:46→13:30)
[2018-02-12 08:00] VITALS: BP 113/48
[2018-02-12] MEDS: DOCUSATE SODIUM 100MG CAPSULE PO SCH ×3 (08:21→17:23)
[2018-02-12] MEDS: BISACODYL 5MG TABLET PO SCH ×2 (08:21→17:23)
[2018-02-12] MEDS: SEVELAMER CARBONATE 800 MG TABLET PO SCH ×2 (08:21→17:23)
[2018-02-12] MEDS: AMLODIPINE 10MG TABLET PO SCH (08:23)
[2018-02-12 11:47] VITALS: BP 135/72
[2018-02-12] MEDS: ONDANSETRON HCL 4MG/2ML VIAL IV PRN ×2 (13:30→22:41)
[2018-02-12] MEDS ORDERED: MAGNESIUM/ALUMINUM HYDROXIDE/SIMETHICONE 30ML UDC PO PRN (14:00)
[2018-02-12] MEDS: DIPHENHYDRAMINE 50MG/ML VIAL IV PRN (15:37)
[2018-02-12 15:42] VITALS: BP 138/67
[2018-02-12 20:00] VITALS: BP 148/72
[2018-02-12] MEDS: MORPHINE SULFATE 4 MG/ML CPJ (NOT FOR IM USE) IV PRN (22:42)
[2018-02-13] VITALS: BP 135/75
[2018-02-13 04:00] VITALS: BP 121/55
[2018-02-13] MEDS: DOXYCYCLINE HYCLATE 100MG CAPSULE PO SCH ×2 (05:13→17:29)
[2018-02-13] MEDS: INSULIN LISPRO 100 UNITS/ML SUBCUT SCH ×4 (05:54→20:56)
[2018-02-13] MEDS: BLOOD SUGAR DIAGNOSTIC STRIP TEST SCH ×4 (05:54→20:56)
[2018-02-13] MEDS: SEVELAMER CARBONATE 800 MG TABLET PO SCH ×2 (07:40→17:28)
[2018-02-13 08:00] VITALS: BP 128/65
[2018-02-13] MEDS: FAMOTIDINE 20MG TABLET PO SCH (09:00)
[2018-02-13] MEDS: AMLODIPINE 10MG TABLET PO SCH (09:00)
[2018-02-13] MEDS: DOCUSATE SODIUM 100MG CAPSULE PO SCH ×3 (09:00→17:28)
[2018-02-13] MEDS: BISACODYL 5MG TABLET PO SCH ×2 (09:00→17:28)
[2018-02-13] MEDS ORDERED: BACITRACIN ZINC 15GM TUBE TOP ONE (10:10)
[2018-02-13] MEDS ORDERED: NORMAL SALINE 0.9% 10 ML SYR ONE (10:11)
[2018-02-13] MEDS ORDERED: HEPARIN SODIUM 1,000 UNIT/1ML VIAL IV ONE (10:11)
[2018-02-13] MEDS ORDERED: BUPIVACAINE HCL/PF 0.5% (5MG/ML) 10ML ONE (10:11)
[2018-02-13] MEDS ORDERED: THROMBIN (BOVINE) 5000 UNITS/VIAL TOP ONE (10:11)
[2018-02-13] MEDS ORDERED: BACITRACIN 50,000 UNITS/VIAL ONE (10:12)
[2018-02-13] MEDS ORDERED: LIDOCAINE HCL/PF 1% 10 MG/ML 5ML VIAL ONE ×2 (10:12→13:31)
[2018-02-13 10:55] LABS: INR 1.1; PROTHROMBIN TIME 11.3 sec (9.4-11.6)
[2018-02-13 11:34] LABS: BASOPHILS % 0.6 % (0.0-2.0); EOSINOPHILS % 1.2 % (0.0-5.0); HEMATOCRIT. 28.8 % (36.0-48.0); HEMOGLOBIN. 9.3 g/dL (12.0-16.0); LYMPHOCYTES % 26.2 % (20.0-50.0); MEAN CORPUSCULAR HEMOGLOBIN 27.5 pg (28.0-32.0); MEAN CORPUSCULAR VOLUME 85.6 fL (81.0-99.0); MEAN PLATELET VOLUME 9.4 fl (7.4-10.4); MONOCYTES % 4.2 % (2.0-8.0); NEUTROPHILS % 67.8 % (40.0-76.0); PLATELET 274 x1000/uL (130-400); RED BLOOD CELL COUNT 3.37 mill/uL (4.2-5.4); RED CELL DISTRIBUTION WIDTH 15.8 % (11.6-14.6)
[2018-02-13 11:37] LABS: CHLORIDE 89 mEq/L (98-107)
[2018-02-13 11:51] LABS: B-HCG QUANTITATIVE < 1 mIU/mL (<3)
[2018-02-13 12:00] VITALS: BP 150/67
[2018-02-13] MEDS ORDERED: MIDAZOLAM HCL 2 MG/2 ML VIAL ONE ×2 (12:53→14:18)
[2018-02-13] MEDS ORDERED: PROPOFOL 200MG/20ML VIAL IV ONE (12:53)
[2018-02-13] MEDS ORDERED: FENTANYL CITRATE/PF 50MCG/ML 2ML VIAL ONE (12:53)
[2018-02-13] MEDS ORDERED: DEXAMETHASONE 4MG/ML 1ML VIAL ONE (12:54)
[2018-02-13] MEDS ORDERED: ONDANSETRON HCL 4MG/2ML VIAL ONE (12:54)
[2018-02-13] MEDS ORDERED: GELATIN SPONGE,COMPRESSED SZ 100 ONE (13:00)
[2018-02-13] MEDS ORDERED: ONDANSETRON HCL 4MG/2ML VIAL IV PRN (13:15)
[2018-02-13] MEDS ORDERED: MEPERIDINE HCL/PF 25MG/ML CPJ IV PRN (13:15)
[2018-02-13] MEDS ORDERED: LABETALOL 5MG/ML SYR 20 MG/4 ML SYRINGE IV PRN (13:15)
[2018-02-13] MEDS ORDERED: HEPARIN 1000 UNITS/ML 10ML ONE (13:31)
[2018-02-13 16:00] VITALS: BP 139/64
[2018-02-13] MEDS: ONDANSETRON HCL 4MG/2ML VIAL IV PRN (16:12)
[2018-02-13] MEDS: MORPHINE SULFATE 4 MG/ML CPJ (NOT FOR IM USE) IV PRN ×2 (16:12→17:29)
[2018-02-13] MEDS: DIPHENHYDRAMINE 50MG/ML VIAL IV PRN ×2 (18:07)
[2018-02-13] MEDS ORDERED: CALCIUM CARBONATE 500MG TABLET CHEW PO PRN (19:00)
[2018-02-13 20:00] VITALS: BP 110/54
[2018-02-13] MEDS: ACETAMINOPHEN 325MG TABLET PO PRN (20:52)
[2018-02-13] MEDS ORDERED: MINERAL OIL ENEMA 133ML PR PRN (21:00)
[2018-02-14] VITALS (18 sets, daily range): BP systolic 90–130; BP diastolic 47–74
[2018-02-14] MEDS: HYDROCODONE/APAP 7.5/325MG 1 TAB TABLET PO PRN ×2 (00:06→11:09)
[2018-02-14] MEDS: ONDANSETRON HCL 4MG/2ML VIAL IV PRN ×2 (04:15→11:09)
[2018-02-14] MEDS: DIPHENHYDRAMINE 50MG/ML VIAL IV PRN ×2 (04:15→11:09)
[2018-02-14] MEDS: DOXYCYCLINE HYCLATE 100MG CAPSULE PO SCH (06:12)
[2018-02-14] MEDS: BLOOD SUGAR DIAGNOSTIC STRIP TEST SCH ×2 (06:17→12:10)
[2018-02-14] MEDS: INSULIN LISPRO 100 UNITS/ML SUBCUT SCH ×2 (06:18→13:49)
[2018-02-14] MEDS: SEVELAMER CARBONATE 800 MG TABLET PO SCH (07:40)
[2018-02-14] MEDS: DOCUSATE SODIUM 100MG CAPSULE PO SCH ×2 (07:56→13:50)
[2018-02-14] MEDS: BISACODYL 5MG TABLET PO SCH (07:57)
[2018-02-14] MEDS: AMLODIPINE 10MG TABLET PO SCH (07:57)
[2018-02-14] MEDS: FAMOTIDINE 20MG TABLET PO SCH (07:57)
[2018-02-14] MEDS ORDERED: LIDOCAINE HCL/PF 1% 10 MG/ML 5ML VIAL ONE (09:08)
[2018-02-14] MEDS ORDERED: LIDOCAINE HCL 1%/EPI 1:200,000 30 ML VIAL ONE (09:08)
[2018-02-14] MEDS ORDERED: HEPARIN 1000 UNITS/ML 10ML ONE (09:08)
[2018-02-14] MEDS ORDERED: SODIUM BICARBONATE 4% (2.4MEQ) 5ML VIAL IV ONE (09:08)
[2018-02-14] MEDS ORDERED: FENTANYL CITRATE/PF 50MCG/ML 2ML VIAL ONE (09:31)
[2018-02-14] MEDS ORDERED: FENTANYL CITRATE/PF 50MCG/ML 2ML VIAL IV ONE (10:00)
[2018-02-14] MEDS ORDERED: IOHEXOL-300 50 ML BOTTLE IV ONE (10:03)
[2018-02-14] MEDS ORDERED: FENTANYL CITRATE/PF 50MCG/ML 2ML VIAL IV SCH (10:15)
[2018-02-14] MEDS: APIXABAN 2.5 MG TABLET PO SCH (11:28)
[2018-02-14] MEDS: ACETAMINOPHEN 325MG TABLET PO PRN (15:52)
== END 2018-02-14 17:24 | disposition home or self-care (01) | DRG 444 ==
LOC: ER 09:13 → ENRESERV 10:50 → 5EST 11:08 → EDBEDREQ 11:12 → MICUSO 18:50 → 8WST 02-04 03:15
PROVIDERS: ADMIT Hospitalist; ATTEND Hospitalist
PROC: B5181ZA Fluoroscopy of Superior Vena Cava using Low Osmolar Contrast, Guidance (ICD-10-PCS; principal; 2018-02-01)
PROC: 02HV33Z Insertion of Infusion Device into Superior Vena Cava, Percutaneous Approach (ICD-10-PCS; 2018-02-01)
PROC: B548ZZA Ultrasonography of Superior Vena Cava, Guidance (ICD-10-PCS; 2018-02-01)
PROC: B5131ZA Fluoroscopy of Right Jugular Veins using Low Osmolar Contrast, Guidance (ICD-10-PCS; 2018-02-01)
PROC: B543ZZA Ultrasonography of Right Jugular Veins, Guidance (ICD-10-PCS; 2018-02-01)
PROC: 0JPT3XZ Removal of Tunneled Vascular Access Device from Trunk Subcutaneous Tissue and Fascia, Percutaneous Approach (ICD-10-PCS; 2018-02-01)
PROC: 05PYX3Z Removal of Infusion Device from Upper Vein, External Approach (ICD-10-PCS; 2018-02-01)
PROC: 5A1D70Z Performance of Urinary Filtration, Intermittent, Less than 6 Hours Per Day (ICD-10-PCS; 2018-02-01)
PROC: 30233N1 Transfusion of Nonautologous Red Blood Cells into Peripheral Vein, Percutaneous Approach (ICD-10-PCS; 2018-02-02)
PROC: 5A1D70Z Performance of Urinary Filtration, Intermittent, Less than 6 Hours Per Day (ICD-10-PCS; 2018-02-04)
PROC: 5A1D70Z Performance of Urinary Filtration, Intermittent, Less than 6 Hours Per Day (ICD-10-PCS; 2018-02-06)
PROC: 5A1D70Z Performance of Urinary Filtration, Intermittent, Less than 6 Hours Per Day (ICD-10-PCS; 2018-02-08)
PROC: 5A1D70Z Performance of Urinary Filtration, Intermittent, Less than 6 Hours Per Day (ICD-10-PCS; 2018-02-10)
PROC: 03180JD Bypass Left Brachial Artery to Upper Arm Vein with Synthetic Substitute, Open Approach (ICD-10-PCS; 2018-02-13)
PROC: 5A1D70Z Performance of Urinary Filtration, Intermittent, Less than 6 Hours Per Day (ICD-10-PCS; 2018-02-13)
PROC: B5181ZA Fluoroscopy of Superior Vena Cava using Low Osmolar Contrast, Guidance (ICD-10-PCS; 2018-02-14)
PROC: 02HV33Z Insertion of Infusion Device into Superior Vena Cava, Percutaneous Approach (ICD-10-PCS; 2018-02-14)
PROC: B548ZZA Ultrasonography of Superior Vena Cava, Guidance (ICD-10-PCS; 2018-02-14)
PROC: 02PYX3Z Removal of Infusion Device from Great Vessel, External Approach (ICD-10-PCS; 2018-02-14)
DX: T82.7XXA Infection and inflammatory reaction due to other cardiac and vascular devices, implants and grafts, initial encounter (principal); R65.21 Severe sepsis with septic shock; A41.81 Sepsis due to Enterococcus; I50.33 Acute on chronic diastolic (congestive) heart failure; E46 Unspecified protein-calorie malnutrition; I42.9 Cardiomyopathy, unspecified; D62 Acute posthemorrhagic anemia; N18.6 End stage renal disease; E11.22 Type 2 diabetes mellitus with diabetic chronic kidney disease; I13.2 Hypertensive heart and chronic kidney disease with heart failure and with stage 5 chronic kidney disease, or end stage renal disease; E66.01 Morbid (severe) obesity due to excess calories; E87.5 Hyperkalemia; I82.501 Chronic embolism and thrombosis of unspecified deep veins of right lower extremity; K59.00 Constipation, unspecified; N93.9 Abnormal uterine and vaginal bleeding, unspecified; Y83.8 Other surgical procedures as the cause of abnormal reaction of the patient, or of later complication, without mention of misadventure at the time of the procedure; Y84.1 Kidney dialysis as the cause of abnormal reaction of the patient, or of later complication, without mention of misadventure at the time of the procedure; Y92.89 Other specified places as the place of occurrence of the external cause; Z91.040 Latex allergy status; Z90.49 Acquired absence of other specified parts of digestive tract; Z99.2 Dependence on renal dialysis; Z91.018 Allergy to other foods; Z79.1 Long term (current) use of non-steroidal anti-inflammatories (NSAID); Z79.899 Other long term (current) drug therapy; Z79.4 Long term (current) use of insulin; Z68.42 Body mass index [BMI] 45.0-49.9, adult
CPT/HCPCS: 36415; 36556; 36558; 36589; 71045; 75827; 76830; 76856; 76937; 77001; 80048; 80053; 80061; 80202; 82270; 82962; 83540; 83550; 83605; 83880; 84484; 84702; 85007; 85025; 85027; 85610; 86850; 86900; 86920; 87040; 87077; 87086; 87106; 87186; 93005; 93306; 93970; 96374; 96375; 99291; A4216; C1750; C1752; C1769; C1887; C1893; J0885; J1100; J1200; J1644; J1815; J2250; J2270; J2405; J2543; J2704; J3010; J3370; J3490; J7030; J7040; J7042; J7050; J7060; J7070; P9016; Q9967

== ENCOUNTER 2019-07-23 12:45 | Inpatient (IN) | payer MEDICARE, MEDICAID ==
[~2019-07-23] VITALS: Ht 157.5 cm; Wt 130.6 kg
[~2019-07-23 12:45] MED LIST changes: -AMIT25TA9 PO; +AMLO10TA4 PO; -AMLO25PO MC; +APIX2.5T PO; -CALC0.253 PO; +CINA30 PO; -CLOP75TA33 PO; -CYCL5TAB PO; -DIPH25CA83 PO; +DOCU-150 PO; -FERR325T6 PO; -FURO-151 PO; -GUAI120S2 PO; -HYDR-4009 PO; -INSLIS SUBCUT; -LIDO30CR TP; -LORA10TA7 PO; -LOSA50TA20 PO; +NEPVIT MT; -ONDA8TAB6 PO; -PANT40TA4 PO; +ROSU5TAB MT; -SERT100T PO; -TC1U15 TOP
[2019-07-23] MEDS ORDERED: ASPIRIN 81MG TABLET PO ONE (14:15)
[2019-07-23 14:49] LABS: BASOPHILS % 0.5 % (0.0-2.0); EOSINOPHILS % 3.5 % (0.0-5.0); HEMATOCRIT. 29.4 % (36.0-48.0); HEMOGLOBIN. 9.3 g/dL (12.0-16.0); LYMPHOCYTES % 25.3 % (20.0-50.0); MEAN CORPUSCULAR HEMOGLOBIN 27.6 pg (28.0-32.0); MEAN CORPUSCULAR VOLUME 87.3 fL (81.0-99.0); MEAN PLATELET VOLUME 9.3 fl (7.4-10.4); MONOCYTES % 9.3 % (2.0-8.0); NEUTROPHILS % 61.4 % (40.0-76.0); PLATELET 155 x1000/uL (130-400); RED BLOOD CELL COUNT 3.37 mill/uL (4.2-5.4); RED CELL DISTRIBUTION WIDTH 17.7 % (11.6-14.6)
[2019-07-23 14:56] LABS: CHLORIDE 96 mEq/L (98-107)
[2019-07-23] MEDS ORDERED: GUAIFENESIN/CODEINE 100-10MG/5ML UDC PO ONE (16:45)
[2019-07-23] MEDS ORDERED: CLONIDINE 0.1MG TABLET PO PRN (19:00)
[2019-07-23] MEDS ORDERED: MAGNESIUM/ALUMINUM HYDROXIDE/SIMETHICONE 30ML UDC PO PRN (19:00)
[2019-07-23] MEDS ORDERED: LEVOFLOXACIN 500MG PREMIX 100 ML IV SCH ×2 (19:00→19:45)
[2019-07-23] MEDS ORDERED: IPRATROPIUM/ALBUTEROL 0.5-3(2.5)MG/3ML NEB NEB PRN (19:00)
[2019-07-23] MEDS ORDERED: NA PHOS,M-B/NA PHOS,DI-BA ENEMA 118ML PR PRN (19:00)
[2019-07-23] MEDS ORDERED: DEXTROSE 50% WATER 50ML SYRINGE IV PRN (19:00)
[2019-07-23 22:00] VITALS: BP 170/41
[2019-07-23] MEDS ORDERED: INSULIN GLARGINE UD 100 UNITS/ML SYR SUBCUT SCH (22:00)
[2019-07-23] MEDS: BLOOD SUGAR DIAGNOSTIC STRIP TEST SCH (23:00)
[2019-07-23] MEDS: OMEPRAZOLE 20MG CAPSULE EXTENDED RELEASE PO SCH (23:59)
[2019-07-23] MEDS: ATORVASTATIN CALCIUM 20MG TABLET PO SCH (23:59)
[2019-07-24] VITALS: BP 120/48
[2019-07-24] MEDS ORDERED: IPRATROPIUM/ALBUTEROL 0.5-3(2.5)MG/3ML NEB HHN SCH
[2019-07-24] MEDS: DOCUSATE SODIUM 100MG CAPSULE PO PRN
[2019-07-24] MEDS: INSULIN LISPRO 100 UNITS/ML SUBCUT SCH ×5 (00:20→23:48)
[2019-07-24] MEDS: INSULIN GLARGINE UD 100 UNITS/ML SYR SUBCUT SCH ×2 (00:22→23:49)
[2019-07-24 00:57] VITALS: BP 170/41
[2019-07-24] MEDS: GUAIFENESIN/CODEINE 100-10MG/5ML UDC PO PRN ×2 (01:04→14:55)
[2019-07-24] MEDS: BLOOD SUGAR DIAGNOSTIC STRIP TEST SCH ×4 (07:40→21:00)
[2019-07-24] MEDS: BENAZEPRIL 10MG TABLET PO SCH ×2 (09:00→22:02)
[2019-07-24] MEDS: HYDROCORTISONE ACETATE 25MG SUPP PR SCH ×2 (09:00→21:00)
[2019-07-24] MEDS: GUAIFENESIN 600MG ER TABLET PO SCH ×2 (09:52→22:02)
[2019-07-24] MEDS: FOLIC ACID/VITAMIN B COMP W-C TABLET PO SCH (09:53)
[2019-07-24] MEDS: DOCUSATE SODIUM 100MG CAPSULE PO SCH (09:53)
[2019-07-24] MEDS: OMEPRAZOLE 20MG CAPSULE EXTENDED RELEASE PO SCH ×2 (09:53→22:01)
[2019-07-24] MEDS: HYDROCODONE/ACETAMINOPHEN 5/325MG TABLET PO PRN ×3 (09:56→20:12)
[2019-07-24] MEDS: APIXABAN 2.5 MG TABLET PO SCH ×2 (10:00→17:41)
[2019-07-24 12:00] VITALS: BP 113/46
[2019-07-24 16:00] VITALS: BP 100/41
[2019-07-24] MEDS: ACETAMINOPHEN 325MG TABLET PO PRN (17:42)
[2019-07-24] MEDS ORDERED: LORAZEPAM 1MG TABLET PO PRN (20:45)
[2019-07-24] MEDS: SODIUM CHLORIDE 0.9% INJ 3ML FLUSH IVF SCH (22:00)
[2019-07-24] MEDS: ATORVASTATIN CALCIUM 20MG TABLET PO SCH (22:02)
[2019-07-24] MEDS: LEVOFLOXACIN 250MG TABLET PO SCH (22:04)
[2019-07-25] MEDS: TEMAZEPAM 15MG CAPSULE PO PRN (00:04)
[2019-07-25 00:25] VITALS: BP 112/49
[2019-07-25] MEDS: IPRATROPIUM BROMIDE (0.02%) 0.5MG/2.5ML NEB HHN SCH ×4 (01:33→20:35)
[2019-07-25] MEDS: GUAIFENESIN/CODEINE 100-10MG/5ML UDC PO PRN ×3 (03:26→15:31)
[2019-07-25 04:00] VITALS: BP 132/58
[2019-07-25] MEDS: SODIUM CHLORIDE 0.9% INJ 3ML FLUSH IVF SCH ×2 (05:27→22:00)
[2019-07-25] MEDS ORDERED: IPRATROPIUM BROMIDE (0.02%) 0.5MG/2.5ML NEB HHN PRN (06:15)
[2019-07-25] MEDS: BLOOD SUGAR DIAGNOSTIC STRIP TEST SCH ×3 (07:40→21:00)
[2019-07-25 08:00] VITALS: BP 114/48
[2019-07-25] MEDS: INSULIN LISPRO 100 UNITS/ML SUBCUT SCH ×3 (08:10→21:00)
[2019-07-25] MEDS: HYDROCORTISONE ACETATE 25MG SUPP PR SCH ×2 (09:00→22:52)
[2019-07-25] MEDS: FOLIC ACID/VITAMIN B COMP W-C TABLET PO SCH (09:19)
[2019-07-25] MEDS: DOCUSATE SODIUM 100MG CAPSULE PO SCH (09:20)
[2019-07-25] MEDS: OMEPRAZOLE 20MG CAPSULE EXTENDED RELEASE PO SCH ×2 (09:20→22:52)
[2019-07-25] MEDS: GUAIFENESIN 600MG ER TABLET PO SCH ×2 (09:20→22:52)
[2019-07-25] MEDS: APIXABAN 2.5 MG TABLET PO SCH ×2 (09:20→16:45)
[2019-07-25] MEDS: BENAZEPRIL 10MG TABLET PO SCH ×2 (09:21→22:53)
[2019-07-25] MEDS ORDERED: LEVOFLOXACIN 250MG TABLET PO SCH (11:00)
[2019-07-25 12:00] VITALS: BP 130/45
[2019-07-25] MEDS: ONDANSETRON HCL 4MG/2ML INJ IV PRN (15:31)
[2019-07-25 16:00] VITALS: BP 137/56
[2019-07-25] MEDS ORDERED: OSELTAMIVIR 30MG CAPSULE PO NR (19:30)
[2019-07-25 20:00] VITALS: BP 135/55
[2019-07-25] MEDS ORDERED: LEVOFLOXACIN 250MG PREMIX 50 ML IV SCH (21:00)
[2019-07-25] MEDS: ATORVASTATIN CALCIUM 20MG TABLET PO SCH (22:52)
[2019-07-25] MEDS: INSULIN GLARGINE UD 100 UNITS/ML SYR SUBCUT SCH (22:54)
[2019-07-25] MEDS: LORAZEPAM 1MG TABLET PO SCH (22:55)
[2019-07-26] VITALS: BP 127/46
[2019-07-26] MEDS: IPRATROPIUM BROMIDE (0.02%) 0.5MG/2.5ML NEB HHN SCH ×4 (01:35→21:14)
[2019-07-26] MEDS: ACETAMINOPHEN 325MG TABLET PO PRN ×2 (03:17→11:44)
[2019-07-26 04:00] VITALS: BP 102/47
[2019-07-26] MEDS: SODIUM CHLORIDE 0.9% INJ 3ML FLUSH IVF SCH ×3 (05:32→22:39)
[2019-07-26] MEDS: BLOOD SUGAR DIAGNOSTIC STRIP TEST SCH ×4 (05:33→20:48)
[2019-07-26] MEDS: LORAZEPAM 1MG TABLET PO SCH ×2 (07:00→22:36)
[2019-07-26 07:55] LABS: BASOPHILS % 0.6 % (0.0-2.0); EOSINOPHILS % 3.8 % (0.0-5.0); HEMOGLOBIN. 8.7 g/dL (12.0-16.0); LYMPHOCYTES % 26.3 % (20.0-50.0); MEAN CORPUSCULAR HEMOGLOBIN 27.8 pg (28.0-32.0); MEAN CORPUSCULAR VOLUME 86.1 fL (81.0-99.0); MEAN PLATELET VOLUME 8.9 fl (7.4-10.4); MONOCYTES % 8.5 % (2.0-8.0); NEUTROPHILS % 60.8 % (40.0-76.0); PLATELET 142 x1000/uL (130-400); RED BLOOD CELL COUNT 3.14 mill/uL (4.2-5.4); RED CELL DISTRIBUTION WIDTH 17.5 % (11.6-14.6)
[2019-07-26 08:00] VITALS: BP 120/43
[2019-07-26 08:00] LABS: CHLORIDE 110 mEq/L (98-107)
[2019-07-26] MEDS: INSULIN LISPRO 100 UNITS/ML SUBCUT SCH ×4 (08:10→20:48)
[2019-07-26] MEDS: HYDROCORTISONE ACETATE 25MG SUPP PR SCH ×3 (09:00→22:39)
[2019-07-26] MEDS: FOLIC ACID/VITAMIN B COMP W-C TABLET PO SCH (09:17)
[2019-07-26] MEDS: BENAZEPRIL 10MG TABLET PO SCH ×2 (09:17→22:37)
[2019-07-26] MEDS: OMEPRAZOLE 20MG CAPSULE EXTENDED RELEASE PO SCH ×2 (09:17→22:37)
[2019-07-26] MEDS: GUAIFENESIN 600MG ER TABLET PO SCH ×2 (09:18→22:37)
[2019-07-26] MEDS: DOCUSATE SODIUM 100MG CAPSULE PO SCH (09:18)
[2019-07-26] MEDS: APIXABAN 2.5 MG TABLET PO SCH ×2 (09:18→17:58)
[2019-07-26] MEDS: LEVOFLOXACIN 250MG TABLET PO SCH (11:44)
[2019-07-26] MEDS ORDERED: DIPHENHYDRAMINE 50MG CAPSULE PO PRN (11:45)
[2019-07-26 12:00] VITALS: BP 134/50
[2019-07-26] MEDS: GUAIFENESIN/CODEINE 100-10MG/5ML UDC PO PRN ×2 (13:42→20:40)
[2019-07-26] MEDS: DIPHENHYDRAMINE 50MG CAPSULE PO PRN ×2 (15:09→23:21)
[2019-07-26] MEDS ORDERED: POTASSIUM CHLORIDE 20MEQ/PACKET PO NR (15:30)
[2019-07-26 16:00] VITALS: BP 127/67
[2019-07-26] MEDS: ATORVASTATIN CALCIUM 20MG TABLET PO SCH (22:36)
[2019-07-26] MEDS: INSULIN GLARGINE UD 100 UNITS/ML SYR SUBCUT SCH (22:41)
[2019-07-26] MEDS ORDERED: PROMETHAZINE/DEXTROMETHORPHAN 6.25-15MG/5ML BOTTLE 120ML PO PRN (23:30)
[2019-07-27 00:14] VITALS: BP 103/42
[2019-07-27] MEDS: PROMETHAZINE HCL 6.25 MG/5 ML 118ML PO PRN ×3 (00:40→19:07)
[2019-07-27] MEDS: IPRATROPIUM BROMIDE (0.02%) 0.5MG/2.5ML NEB HHN SCH ×4 (01:04→21:56)
[2019-07-27] MEDS: TEMAZEPAM 15MG CAPSULE PO PRN (02:43)
[2019-07-27 04:00] VITALS: BP 117/40
[2019-07-27] MEDS: BLOOD SUGAR DIAGNOSTIC STRIP TEST SCH ×4 (06:09→21:12)
[2019-07-27] MEDS: SODIUM CHLORIDE 0.9% INJ 3ML FLUSH IVF SCH ×2 (06:10→21:24)
[2019-07-27 08:00] VITALS: BP 152/56
[2019-07-27] MEDS: INSULIN LISPRO 100 UNITS/ML SUBCUT SCH ×4 (08:03→21:00)
[2019-07-27] MEDS: BENAZEPRIL 10MG TABLET PO SCH ×2 (08:31→21:19)
[2019-07-27] MEDS: APIXABAN 2.5 MG TABLET PO SCH ×2 (08:31→16:50)
[2019-07-27] MEDS: OMEPRAZOLE 20MG CAPSULE EXTENDED RELEASE PO SCH ×2 (08:31→21:19)
[2019-07-27] MEDS: DOCUSATE SODIUM 100MG CAPSULE PO SCH (08:31)
[2019-07-27] MEDS: GUAIFENESIN 600MG ER TABLET PO SCH ×2 (08:32→21:19)
[2019-07-27] MEDS: FOLIC ACID/VITAMIN B COMP W-C TABLET PO SCH (08:32)
[2019-07-27] MEDS: HYDROCORTISONE ACETATE 25MG SUPP PR SCH ×2 (08:33→21:26)
[2019-07-27 12:00] VITALS: BP 140/60
[2019-07-27] MEDS: DIPHENHYDRAMINE 50MG CAPSULE PO PRN (13:03)
[2019-07-27] MEDS ORDERED: OSELTAMIVIR 30MG CAPSULE PO NR (15:00)
[2019-07-27 16:00] VITALS: BP 141/48
[2019-07-27 20:00] VITALS: BP 135/58
[2019-07-27] MEDS: ATORVASTATIN CALCIUM 20MG TABLET PO SCH (21:19)
[2019-07-27] MEDS: INSULIN GLARGINE UD 100 UNITS/ML SYR SUBCUT SCH (21:26)
[2019-07-28] VITALS: BP 132/43
[2019-07-28] MEDS: PROMETHAZINE HCL 6.25 MG/5 ML 118ML PO PRN ×3 (00:16→22:18)
[2019-07-28] MEDS: IPRATROPIUM BROMIDE (0.02%) 0.5MG/2.5ML NEB HHN SCH ×3 (01:15→20:34)
[2019-07-28 04:00] VITALS: BP 126/54
[2019-07-28] MEDS: SODIUM CHLORIDE 0.9% INJ 3ML FLUSH IVF SCH ×2 (06:07→19:04)
[2019-07-28] MEDS: OMEPRAZOLE 20MG CAPSULE EXTENDED RELEASE PO SCH ×2 (07:50→22:03)
[2019-07-28] MEDS: HYDROCODONE/ACETAMINOPHEN 5/325MG TABLET PO PRN ×2 (07:50→14:06)
[2019-07-28] MEDS: BLOOD SUGAR DIAGNOSTIC STRIP TEST SCH ×4 (07:52→21:00)
[2019-07-28] MEDS: INSULIN LISPRO 100 UNITS/ML SUBCUT SCH ×4 (07:52→22:20)
[2019-07-28 08:00] VITALS: BP 138/45
[2019-07-28] MEDS: BENAZEPRIL 10MG TABLET PO SCH ×2 (09:00→22:04)
[2019-07-28] MEDS: HYDROCORTISONE ACETATE 25MG SUPP PR SCH ×2 (09:00→21:00)
[2019-07-28] MEDS: DOCUSATE SODIUM 100MG CAPSULE PO SCH (09:01)
[2019-07-28] MEDS: FOLIC ACID/VITAMIN B COMP W-C TABLET PO SCH (09:01)
[2019-07-28] MEDS: GUAIFENESIN 600MG ER TABLET PO SCH ×2 (09:01→22:05)
[2019-07-28] MEDS: APIXABAN 2.5 MG TABLET PO SCH ×2 (09:01→16:56)
[2019-07-28 12:00] VITALS: BP 99/54
[2019-07-28] MEDS: LEVOFLOXACIN 250MG TABLET PO SCH (12:46)
[2019-07-28] MEDS: BENZONATATE 100MG CAPSULE PO PRN ×2 (12:51→22:03)
[2019-07-28 16:00] VITALS: BP 119/46
[2019-07-28] MEDS: ONDANSETRON HCL 4MG/2ML INJ IV PRN (16:56)
[2019-07-28 20:00] VITALS: BP_SYST 148; BP_SYST 98; BP_DIAS 43; BP_DIAS 79
[2019-07-28] MEDS: ATORVASTATIN CALCIUM 20MG TABLET PO SCH (22:03)
[2019-07-28] MEDS: LORAZEPAM 1MG TABLET PO PRN (22:19)
[2019-07-28] MEDS: INSULIN GLARGINE UD 100 UNITS/ML SYR SUBCUT SCH (22:21)
[2019-07-29] VITALS: BP 95/42
[2019-07-29] MEDS: IPRATROPIUM BROMIDE (0.02%) 0.5MG/2.5ML NEB HHN SCH ×4 (02:10→21:43)
[2019-07-29 04:00] VITALS: BP 136/51
[2019-07-29] MEDS: SODIUM CHLORIDE 0.9% INJ 3ML FLUSH IVF SCH ×4 (04:53→21:43)
[2019-07-29] MEDS: PROMETHAZINE HCL 6.25 MG/5 ML 118ML PO PRN ×2 (04:54→13:59)
[2019-07-29] MEDS ORDERED: HYDROCODONE/ACETAMINOPHEN 5/325MG TABLET PO PRN (05:15)
[2019-07-29] MEDS: BLOOD SUGAR DIAGNOSTIC STRIP TEST SCH ×4 (06:54→21:43)
[2019-07-29] MEDS: INSULIN LISPRO 100 UNITS/ML SUBCUT SCH ×4 (06:54→21:43)
[2019-07-29] MEDS: OMEPRAZOLE 20MG CAPSULE EXTENDED RELEASE PO SCH ×2 (07:02→21:42)
[2019-07-29 08:30] VITALS: BP 120/46
[2019-07-29] MEDS: HYDROCORTISONE ACETATE 25MG SUPP PR SCH ×2 (08:45→21:42)
[2019-07-29] MEDS: GUAIFENESIN 600MG ER TABLET PO SCH ×2 (08:46→21:42)
[2019-07-29] MEDS: FOLIC ACID/VITAMIN B COMP W-C TABLET PO SCH (08:46)
[2019-07-29] MEDS: BENAZEPRIL 10MG TABLET PO SCH ×2 (08:46→21:42)
[2019-07-29] MEDS: APIXABAN 2.5 MG TABLET PO SCH ×2 (08:46→17:00)
[2019-07-29] MEDS: DOCUSATE SODIUM 100MG CAPSULE PO SCH (08:46)
[2019-07-29] MEDS: BENZONATATE 100MG CAPSULE PO PRN ×2 (08:52→22:17)
[2019-07-29] MEDS: ONDANSETRON HCL 4MG/2ML INJ IV PRN (09:50)
[2019-07-29 12:00] VITALS: BP 118/47
[2019-07-29 16:00] VITALS: BP 95/42
[2019-07-29 20:00] VITALS: BP 124/49
[2019-07-29] MEDS: DOCUSATE SODIUM 100MG CAPSULE PO PRN (21:42)
[2019-07-29] MEDS: ATORVASTATIN CALCIUM 20MG TABLET PO SCH (21:42)
[2019-07-29] MEDS: INSULIN GLARGINE UD 100 UNITS/ML SYR SUBCUT SCH (21:43)
[2019-07-29] MEDS: LORAZEPAM 1MG TABLET PO PRN (22:17)
[2019-07-30] VITALS: BP 115/47
[2019-07-30] MEDS: IPRATROPIUM BROMIDE (0.02%) 0.5MG/2.5ML NEB HHN SCH ×3 (01:30→16:49)
[2019-07-30] MEDS: PROMETHAZINE HCL 6.25 MG/5 ML 118ML PO PRN ×3 (03:15→22:23)
[2019-07-30 04:00] VITALS: BP 121/52
[2019-07-30] MEDS: SODIUM CHLORIDE 0.9% INJ 3ML FLUSH IVF SCH ×3 (06:25→22:00)
[2019-07-30] MEDS: BLOOD SUGAR DIAGNOSTIC STRIP TEST SCH ×4 (08:07→21:00)
[2019-07-30] MEDS: INSULIN LISPRO 100 UNITS/ML SUBCUT SCH ×4 (08:07→22:18)
[2019-07-30 08:25] VITALS: BP 117/32
[2019-07-30] MEDS: BENAZEPRIL 10MG TABLET PO SCH ×2 (08:37→22:19)
[2019-07-30] MEDS: DOCUSATE SODIUM 100MG CAPSULE PO SCH (08:37)
[2019-07-30] MEDS: GUAIFENESIN 600MG ER TABLET PO SCH ×2 (08:37→22:19)
[2019-07-30] MEDS: APIXABAN 2.5 MG TABLET PO SCH ×2 (08:37→17:17)
[2019-07-30] MEDS: FOLIC ACID/VITAMIN B COMP W-C TABLET PO SCH (08:37)
[2019-07-30] MEDS: OMEPRAZOLE 20MG CAPSULE EXTENDED RELEASE PO SCH ×2 (08:37→22:19)
[2019-07-30] MEDS: HYDROCORTISONE ACETATE 25MG SUPP PR SCH ×2 (08:38→21:00)
[2019-07-30] MEDS: LEVOFLOXACIN 250MG TABLET PO SCH (10:09)
[2019-07-30] MEDS: BENZONATATE 100MG CAPSULE PO PRN ×2 (10:16→22:26)
[2019-07-30] MEDS: GUAIFENESIN/CODEINE 100-10MG/5ML UDC PO PRN (10:16)
[2019-07-30 12:00] VITALS: BP 118/40
[2019-07-30] MEDS ORDERED: OSELTAMIVIR PHOSPHATE 6 MG/1 ML PO NR (15:00)
[2019-07-30 16:19] VITALS: BP 98/67
[2019-07-30 16:21] VITALS: BP 98/67
[2019-07-30] MEDS: INSULIN GLARGINE UD 100 UNITS/ML SYR SUBCUT SCH (22:18)
[2019-07-30] MEDS: ATORVASTATIN CALCIUM 20MG TABLET PO SCH (22:20)
== END 2019-07-30 22:45 | disposition home or self-care (01) | DRG 202 ==
LOC: ER 12:45 → 7WST 16:50 → EDBEDREQTM 16:52 → EDBEDREQ 16:52 → ENRESERV 19:19
PROVIDERS: ADMIT Internal Medicine; ATTEND Internal Medicine
PROC: 5A1D70Z Performance of Urinary Filtration, Intermittent, Less than 6 Hours Per Day (ICD-10-PCS; principal; 2019-07-23)
PROC: 5A1D70Z Performance of Urinary Filtration, Intermittent, Less than 6 Hours Per Day (ICD-10-PCS; 2019-07-25)
PROC: 5A1D70Z Performance of Urinary Filtration, Intermittent, Less than 6 Hours Per Day (ICD-10-PCS; 2019-07-28)
PROC: 5A1D70Z Performance of Urinary Filtration, Intermittent, Less than 6 Hours Per Day (ICD-10-PCS; 2019-07-29)
DX: J20.9 Acute bronchitis, unspecified (principal); N18.6 End stage renal disease; I13.2 Hypertensive heart and chronic kidney disease with heart failure and with stage 5 chronic kidney disease, or end stage renal disease; I50.32 Chronic diastolic (congestive) heart failure; Z68.43 Body mass index [BMI] 50.0-59.9, adult; K21.9 Gastro-esophageal reflux disease without esophagitis; E11.51 Type 2 diabetes mellitus with diabetic peripheral angiopathy without gangrene; R07.89 Other chest pain; D63.1 Anemia in chronic kidney disease; E11.22 Type 2 diabetes mellitus with diabetic chronic kidney disease; E11.40 Type 2 diabetes mellitus with diabetic neuropathy, unspecified; E66.01 Morbid (severe) obesity due to excess calories; E78.00 Pure hypercholesterolemia, unspecified; E87.6 Hypokalemia; F41.1 Generalized anxiety disorder; J11.1 Influenza due to unidentified influenza virus with other respiratory manifestations; Z82.49 Family history of ischemic heart disease and other diseases of the circulatory system; Z83.3 Family history of diabetes mellitus; Z90.89 Acquired absence of other organs; Z89.412 Acquired absence of left great toe; Z89.022 Acquired absence of left finger(s); Z86.718 Personal history of other venous thrombosis and embolism; Z86.73 Personal history of transient ischemic attack (TIA), and cerebral infarction without residual deficits; Z89.511 Acquired absence of right leg below knee; Z99.2 Dependence on renal dialysis; Z79.899 Other long term (current) drug therapy; Z91.040 Latex allergy status; Z79.4 Long term (current) use of insulin
CPT/HCPCS: 36415; 71045; 82962; 83880; 84484; 87804; 93005; 99285; A6261; C1893; J1815; J1956; J2405; J7620; Q0163; Q0169

== ENCOUNTER 2019-09-27 06:20 | Inpatient (IN) | payer MEDICARE, MEDICAID ==
[2019-09-27] VITALS (12 sets, daily range): BP systolic 118–144; BP diastolic 45–88
[~2019-09-27] VITALS: Ht 165.1 cm; Wt 127.9 kg
[2019-09-27 07:42] LABS: PROTHROMBIN TIME 10.4 sec (9.6-11.0)
[2019-09-27 07:48] LABS: CHLORIDE 100 mEq/L (98-107)
[2019-09-27 07:50] LABS: BASOPHILS % 0.4 % (0.0-2.0); EOSINOPHILS % 2.2 % (0.0-5.0); HEMATOCRIT. 32.8 % (36.0-48.0); HEMOGLOBIN. 10.5 g/dL (12.0-16.0); LYMPHOCYTES % 29.3 % (20.0-50.0); MEAN CORPUSCULAR HEMOGLOBIN 29.7 pg (28.0-32.0); MEAN CORPUSCULAR VOLUME 92.6 fL (81.0-99.0); MEAN PLATELET VOLUME 9.1 fl (7.4-10.4); MONOCYTES % 5.8 % (2.0-8.0); NEUTROPHILS % 62.3 % (40.0-76.0); PLATELET 253 x1000/uL (130-400); RED BLOOD CELL COUNT 3.54 mill/uL (4.2-5.4); RED CELL DISTRIBUTION WIDTH 17.6 % (11.6-14.6)
[2019-09-27] MEDS ORDERED: LIDOCAINE HCL 1% 20ML VIAL (Pyxis) INJ ONE (08:20)
[2019-09-27] MEDS ORDERED: SODIUM BICARBONATE 4% (2.4MEQ) 5ML VIAL IV ONE (08:20)
[2019-09-27] MEDS ORDERED: FENTANYL CITRATE/PF 50MCG/ML 2ML VIAL IV ONE (09:25)
[2019-09-27] MEDS ORDERED: FENTANYL CITRATE/PF 50MCG/ML 2ML VIAL IV NR (10:15)
[2019-09-27] MEDS ORDERED: NITROGLYCERIN 0.4MG TABLET SL SL PRN (14:00)
[2019-09-27] MEDS ORDERED: DEXTROSE 50% WATER 50ML SYRINGE IV PRN (14:00)
[2019-09-27] MEDS ORDERED: GUAIFENESIN 200MG/10ML SUGAR FREE UDC PO PRN (14:00)
[2019-09-27] MEDS ORDERED: CLONIDINE 0.1MG TABLET PO PRN (14:00)
[2019-09-27] MEDS ORDERED: ACETAMINOPHEN 325MG TABLET PO PRN (14:00)
[2019-09-27] MEDS ORDERED: MAGNESIUM/ALUMINUM HYDROXIDE/SIMETHICONE 30ML UDC PO PRN (14:00)
[2019-09-27] MEDS ORDERED: ZOLPIDEM TARTRATE 5MG TABLET PO PRN (14:00)
[2019-09-27] MEDS ORDERED: DIPHENHYDRAMINE 50MG/ML VIAL IV PRN (14:00)
[2019-09-27] MEDS ORDERED: IPRATROPIUM/ALBUTEROL 0.5-3(2.5)MG/3ML NEB NEB PRN (14:00)
[2019-09-27] MEDS ORDERED: DOCUSATE SODIUM 100MG CAPSULE PO PRN (14:00)
[2019-09-27] MEDS: HYDROCODONE/ACETAMINOPHEN 10/325MG TABLET PO PRN (16:04)
[2019-09-27] MEDS: SEVELAMER CARBONATE 800 MG TABLET PO SCH ×2 (16:43→19:11)
[2019-09-27] MEDS: BLOOD SUGAR DIAGNOSTIC STRIP TEST SCH ×2 (17:07→21:14)
[2019-09-27] MEDS: INSULIN LISPRO 100 UNITS/ML SUBCUT SCH ×2 (17:09→21:00)
[2019-09-27] MEDS ORDERED: APIXABAN 5 MG TABLET PO SCH (18:00)
[2019-09-27] MEDS: APIXABAN 2.5 MG TABLET PO SCH (19:11)
[2019-09-27] MEDS: FAMOTIDINE 20MG TABLET PO SCH (21:21)
[2019-09-27] MEDS: INSULIN GLARGINE UD 100 UNITS/ML SYR SUBCUT SCH (21:56)
[2019-09-27] MEDS ORDERED: INSULIN GLARGINE UD 100 UNITS/ML SYR SUBCUT SCH (22:00)
[2019-09-27 22:15] LABS: CREATINE KINASE 30 IU/L (26-192)
[2019-09-27 22:16] LABS: CREATINE KINASE MB FRACTION < 1.0 ng/mL (0.5-3.6)
[2019-09-27] MEDS ORDERED: PROMETHAZINE HCL 25MG TABLET PO PRN (23:45)
[2019-09-28] VITALS: BP 103/58
[2019-09-28] MEDS ORDERED: GUAIFENESIN/CODEINE 200-20MG/10ML UDC PO PRN
[2019-09-28 00:58] LABS: CREATINE KINASE 27 IU/L (26-192)
[2019-09-28 00:59] LABS: CREATINE KINASE MB FRACTION < 1.0 ng/mL (0.5-3.6)
[2019-09-28] MEDS ORDERED: OMEP10CA5 PO (02:22)
[2019-09-28] MEDS ORDERED: ZOLP10TA2 PO (02:22)
[2019-09-28] MEDS ORDERED: HEPARIN SODIUM 1,000 UNIT/1ML VIAL IV NR (02:45)
[2019-09-28 04:00] VITALS: BP 117/60
[2019-09-28] MEDS: BLOOD SUGAR DIAGNOSTIC STRIP TEST SCH ×4 (07:40→21:45)
[2019-09-28 08:00] VITALS: BP 136/81
[2019-09-28] MEDS: INSULIN LISPRO 100 UNITS/ML SUBCUT SCH ×4 (09:05→21:54)
[2019-09-28] MEDS: APIXABAN 2.5 MG TABLET PO SCH ×2 (09:06→17:35)
[2019-09-28] MEDS: SEVELAMER CARBONATE 800 MG TABLET PO SCH ×3 (09:06→17:35)
[2019-09-28] MEDS: AMLODIPINE 10MG TABLET PO SCH (09:12)
[2019-09-28 12:00] VITALS: BP 116/55
[2019-09-28 16:00] VITALS: BP 109/40
[2019-09-28 20:00] VITALS: BP 150/50
[2019-09-28] MEDS: HYDROCODONE/ACETAMINOPHEN 10/325MG TABLET PO PRN (21:44)
[2019-09-28] MEDS: FAMOTIDINE 20MG TABLET PO SCH (21:45)
[2019-09-28] MEDS: INSULIN GLARGINE UD 100 UNITS/ML SYR SUBCUT SCH (22:53)
[2019-09-29] VITALS: BP 119/45
[2019-09-29 04:00] VITALS: BP 120/35
[2019-09-29] MEDS: ONDANSETRON HCL 4MG/2ML INJ IV PRN (04:32)
[2019-09-29] MEDS: APIXABAN 2.5 MG TABLET PO SCH ×2 (05:37→17:59)
[2019-09-29] MEDS: BLOOD SUGAR DIAGNOSTIC STRIP TEST SCH ×4 (07:09→21:28)
[2019-09-29] MEDS: INSULIN LISPRO 100 UNITS/ML SUBCUT SCH ×4 (07:40→21:28)
[2019-09-29] MEDS: SEVELAMER CARBONATE 800 MG TABLET PO SCH ×3 (08:50→17:59)
[2019-09-29] MEDS: AMLODIPINE 10MG TABLET PO SCH (08:51)
[2019-09-29 12:00] VITALS: BP 100/50
[2019-09-29 16:00] VITALS: BP 115/26
[2019-09-29 20:00] VITALS: BP 126/54
[2019-09-29] MEDS: FAMOTIDINE 20MG TABLET PO SCH (21:27)
[2019-09-29] MEDS: INSULIN GLARGINE UD 100 UNITS/ML SYR SUBCUT SCH (21:28)
[2019-09-29] MEDS: HYDROCODONE/ACETAMINOPHEN 10/325MG TABLET PO PRN (21:28)
[2019-09-30] VITALS: BP 126/44
[2019-09-30 04:00] VITALS: BP 119/84
[2019-09-30] MEDS: APIXABAN 2.5 MG TABLET PO SCH (05:29)
[2019-09-30] MEDS: ONDANSETRON HCL 4MG/2ML INJ IV PRN (05:29)
[2019-09-30] MEDS: BLOOD SUGAR DIAGNOSTIC STRIP TEST SCH (07:22)
[2019-09-30] MEDS: INSULIN LISPRO 100 UNITS/ML SUBCUT SCH (07:23)
[2019-09-30 08:00] VITALS: BP 100/76
[2019-09-30] MEDS: SEVELAMER CARBONATE 800 MG TABLET PO SCH (08:10)
[2019-09-30] MEDS: AMLODIPINE 10MG TABLET PO SCH (08:11)
[2019-09-30 10:48] VITALS: BP 100/76
[2019-09-30] MEDS ORDERED: TIOT18CA3 INH (10:59)
[2019-09-30] MEDS ORDERED: MIDO2.5T PO (10:59)
== END 2019-09-30 12:31 | disposition home or self-care (01) | DRG 314 ==
LOC: ER 06:20 → SUPCPDRO 13:54 → ENRESERV 16:58 → 7WST 17:50
PROVIDERS: ADMIT Internal Medicine; ATTEND Internal Medicine
PROC: 0J2WXYZ Change Other Device in Lower Extremity Subcutaneous Tissue and Fascia, External Approach (ICD-10-PCS; principal; 2019-09-27)
PROC: 5A1D70Z Performance of Urinary Filtration, Intermittent, Less than 6 Hours Per Day (ICD-10-PCS; 2019-09-27)
PROC: 5A1D70Z Performance of Urinary Filtration, Intermittent, Less than 6 Hours Per Day (ICD-10-PCS; 2019-09-29)
PROC: B51C1ZA Fluoroscopy of Left Lower Extremity Veins using Low Osmolar Contrast, Guidance (ICD-10-PCS; 2019-09-29)
DX: T82.41XA Breakdown (mechanical) of vascular dialysis catheter, initial encounter (principal); N18.6 End stage renal disease; Z68.42 Body mass index [BMI] 45.0-49.9, adult; I13.2 Hypertensive heart and chronic kidney disease with heart failure and with stage 5 chronic kidney disease, or end stage renal disease; I50.30 Unspecified diastolic (congestive) heart failure; D63.1 Anemia in chronic kidney disease; E11.22 Type 2 diabetes mellitus with diabetic chronic kidney disease; E66.01 Morbid (severe) obesity due to excess calories; E78.00 Pure hypercholesterolemia, unspecified; Y71.2 Prosthetic and other implants, materials and accessory cardiovascular devices associated with adverse incidents; Z79.4 Long term (current) use of insulin; Z86.718 Personal history of other venous thrombosis and embolism; Z86.73 Personal history of transient ischemic attack (TIA), and cerebral infarction without residual deficits; Z89.519 Acquired absence of unspecified leg below knee; Z99.2 Dependence on renal dialysis; Z91.040 Latex allergy status
CPT/HCPCS: 36415; 36558; 73610; 77001; 80053; 80061; 82550; 82553; 82962; 83036; 84484; 85025; 93005; 93970; 99152; 99153; 99285; C1750; C1769; J1200; J1642; J1644; J1815; J2405; J3010; J3490; G0500